=== PATIENT | female | born 1960 | race Caucasian/White ===

== ENCOUNTER 2024-12-29 18:10 | Inpatient (IN) | payer MEDICAID, OTHER ==
[~2024-12-29] VITALS: Ht 170.2 cm; Wt 81.4 kg
[2024-12-29 18:30] VITALS: PULSE 87; RESP 16; O2SAT 95
--- NOTE | 2024-12-29 18:35 | ECG ---
[facility] Test Date: 2024-12-29 Test Time: 18:33:56 Pat Name: TASHA MARK Department: [facility] ED Room: 0248 Gender: F Group Sales Manager: WILLIAM : 1960 Requested By: ISRAEL GIBBONS Order Number: [id number] Reading MD: Arben Cornelius Measurements Intervals Drury Rate: 83 P: 69 MN: 167 QRS: 68 QRSD: 72 T: -59 QT: 463 QTc: 545 Interpretive Statements Sinus rhythm Borderline T abnormalities, diffuse leads Prolonged QT interval Baseline wander in lead(s) II,III,aVL,aVF,V5 Electronically Signed On 01-03-2025 20:27:48 PDT by Arben Cornelius Please click the below link to view image of tracing.
[2024-12-29] MEDS: SODIUM CHLORIDE 0.9% 1,000 ML IV ONE (18:43)
--- NOTE | 2024-12-29 19:05 | DVH ---
CLINICAL HISTORY: altered TECHNIQUE: Single view of the chest was obtained. COMPARISON: None FINDINGS: The heart size is mildly to moderately enlarged and the pulmonary vasculature appears normal. There i s a left medial basilar opacity. IMPRESSION: Left medial basilar opacity, favor atelectasis.
[2024-12-29 19:30] LABS: Urine Protein, UAD 1+ (Negative)
--- NOTE | 2024-12-29 19:33 | ED.PDOC ---
Altered Mental Status HPI Comments This is a 64 year old female BIBA presenting to the ED with chief complaint of ALOC. EMS reports patient has been mentally declining for the past 6 years according to family. EMS relays that the patient's mental decline has worsened over the past week with patient being more altered than usual. EMS states that the patient knows she is in the hospital, but is denying any and all symptoms at this time. EMS notes patient appears pale and is tachycardic. Chief Complaint: ALOC Time Seen by MD: 19:31 Primary Care Provider: ALICIA Reviewed Notes: Nurses Notes, Field Counsel Notes, Medications, Allergies Allergies: Coded Allergies: Acetaminophen (Verified Allergy, Mild, 08/09/09) Hydrocodone (Verified Allergy, Mild, 08/09/09) Home Meds No Active Prescriptions or Reported Meds Information Source: Patient, Emergency Med Personnel Mode of Arrival: EMS Severity: Moderate, Unable to Care for Self Timing: Weeks Duration: Since onset Prehospital treatment: None Quality: Decreased Alertness, Change in Behavior, Confusion Recent: None History of: None Past Medical History PAST MEDICAL HISTORY: Kidney Stones Surgical History: Denies all surgeries LODGE ATTENDANT History: No Pertinent LODGE ATTENDANT History Family History Family History: Reviewed,noncontributory to illness Social History Smoker: Quit Less Than 1 Year, Greater Than 1 Pack/Day Alcohol: Denies ETOH Use Drugs: Denies Drug Use Lives In: Home Constitutional: denies: chills, diaphoresis, fatigue, fever, malaise, sweats, weakness, others EENTM: denies: blurred vision, double vision, ear bleeding, ear discharge, ear drainage, ear pain, ear ringing, eye pain, eye redness, hearing loss, mouth pain , mouth swelling, nasal discharge, nose bleeding, nose congestion, nose pain, photophobia, tearing, throat pain, throat swelling, voice changes, others Respiratory: denies: cough, hemoptysis, orthopnea, SOB at rest, shortness of breath, SOB with excertion, stridor, wheezing, others Cardiovascular: denies: chest pain, dizzy spells, diaphoresis, Dyspnea on exertion, edema, irregular heart beat, left arm pain, lightheadedness, palpitations, PND, syncope, others Gastrointestinal: denies: abdomen distended, abdominal pain, blood streaked bowels, constipated, diarrhea, dysphagia, difficulty swallowing, hematemesis, melena, nausea, poor appetite, poor fluid intake, rectal bleeding, rectal pain, vomiting, others Genitourinary: denies: abnormal vagina bleeding, burning, dyspareunia, dysuria, flank pain, frequency, hematuria, incontinence, pain, , vagina discharge, urgency, others Neurological: denies: dizziness, fainting, headache, left sided numbness, left sided weakness, numbness, paresthesia, pre-existing deficit, right sided numbness, right sided weakness, seizure, speech problems, tingling, tremors, weakness, others Musculoskeletal: denies: back pain, gout, joint pain, joint swelling, muscle pain, muscle stiffness, neck pain, others Integumetry: denies: bruises, change in color, change in hair/nails, dryness, laceration, lesions, lumps, rash, wounds, others Allergic/Immunocompromised: denies: Difficulty Healing, Frequent Infections, Hives, Itching, others Hematologic/Lymphatic: denies: anemia, blood clots, easy bleeding, easy bruising, swollen glands, others Psychiatric: denies: anxiety, bipolar disorder, depression, hopeless, panic disorder, schizophrenia, sleepless, suicidal, others Unable to Obtain due to: Altered Mental Status All Other Systems: Reviewed and Negative Physical Exam General Appearance: No Apparent Distress, Normal HEENT: Normal ENT Inspection, Pharynx Normal, TMs Normal, Other (dry mucous membranes) Neck: Full Range of Motion, Non-Tender, Normal, Normal Inspection Respiratory: Chest Non-Tender, Lungs Clear, No Accessory Muscle Use, No Respiratory Distress, Normal Breath Sounds Cardiovascular: No Edema, No JVD, No Murmur, No Gallop, Normal Peripheral Pulses, Tachycardia Breast Exam: Deferred Gastrointestinal: No Organomegaly, Non Tender, No Pulsatile Mass, Normal Bowel Sounds, Soft Genitalia: Deferred Pelvic: Deferred Rectal: Deferred Extremities: No calf tenderness, Normal capillary refill, Normal inspection, Normal range of motion, Non-tender, No pedal edema Musculoskeletal : Apperance: Normal Neurologic: Alert, loading manager II-XII nml as Tested, No Motor Deficits, Normal Affect, Normal Mood, No Sensory Deficits Cerebellar Function: Normal Reflexes: Normal Skin: Dry, Pallor, Warm Lymphatic: No Adenopathy Was a procedure done? Was a procedure done?: No Other Procedure Procedure I attempted to place a triple-lumen central venous catheter in the right internal jugular vein . The vein was very collapsible. Each time the needle we will completely collapsed the vein without penetration. However on the last attempt I was able to penetrate the vein and was able to aspirate dark venous blood flow easily however when attempting to place the guidewire only advanced by about 5 in in was stopped advancing. This attempt was aborted with the guidewire retrieved. I then attempted to place of femoral central venous catheter on the right femoral vein. I was able to easily cannulate the vein on the 1st attempt with return of dark venous blood however again, the guidewire only advanced to about 5 inches. Again I back the guidewire back gout and abort ed the attempt. Each attempt was done under although sterile protocol with no complications. No hematoma, no active bleeding. Differential Diagnosis (ALOC) Differential Diagnosis: Dehydration, Hypoglycemia, Encephalopathy, Hypoxemia, Seizure, CVA, Mass Lesion, SAH, Drug Overdose, ETOH Intoxication, Heart Failure, Renal Failure, Other (hypothyroidism) X-Ray, Labs, Meds, VS Vital Signs Date Time Temp Pulse Resp B/P (MAP) Pulse Ox O2 Delivery O2 Flow Rate FiO2 12/29/24 20:25 100.4 82 22 157/56 (89) 95 100.4 12/29/24 18:33 83 12/29/24 18:30 87 16 95 Room Air* 0 21 12/29/24 18:30 97.7 87 20 161/125 (137) 95 97.7 12/29/24 18:11 97.3 72 18 111/66 94 97.3 Lab Test 12/29/24 19:58 12/29/24 18:51 12/29/24 18:48 Range/Units Troponin I High Sensitivity 12 14 </=34 ng/L Urine Color Light-orange Yellow Urine Clarity Turbid H Clear Urine pH 7.5 5.0-9.0 Urine Specific [place]hoff 1.015 1.001-1.035 Urine Protein 1+ H Negative Urine Ketones Negative Negative Urine Blood 2+ H Negative /uL Urine Nitrite Negative Negative Urine Bilirubin Negative Negative Urine Urobilinogen Normal Negative mg/dL Urine Leukocyte Esterase 1+ Negative /uL Urine RBC 51 0 - 4 /hpf Urine Microscopic WBC 36 H 0-5 /HPF Urine Squamous Epithelial Cells Few <5 /hpf Urine Bacteria Few H None Seen /hpf Urine Mucus Few None Seen Urine Glucose Normal Normal mg/dL Urine Opiates Screen Neg NEGATIVE Urine Fentanyl Screen Neg NEGATIVE Urine Barbiturates Screen Neg NEGATIVE Urine Phencyclidine Screen Neg NEGATIVE Urine Amphetamines Screen Neg NEGATIVE Urine Benzodiazepines Screen Neg NEGATIVE Urine Cocaine Screen Neg NEGATIVE Urine Cannabinoids Screen Neg NEGATIVE White Blood Count 11.7 H 4.4-10.8 10^3/uL Red Blood Count 3.65 L 4.0-5.20 10^6/uL Hemoglobin 12.5 12.2-16.2 g/dL Hematocrit 36.8 36.0-46.0 % Mean Corpuscular Volume 100.9 H 80.0-100.0 fL Mean Corpuscular Hemoglobin 34.4 H 28.0-32.0 pg Mean Corpuscular Hemoglobin Concent 34.1 32.0-36.0 g/dL Red Cell Distribution Width 15.1 H 11.8-14.3 % Platelet Count 154 140-450 10^3/uL Mean Platelet Volume 10.2 6.9-10.8 fL Neutrophils (%) (Auto) 37.0-80.0 % Lymphocytes (%) (Auto) 10.0-50.0 % Monocytes (%) (Auto) 0.0-12.0 % Basophils (%) (Auto) 0.0-2.0 % Neutrophils # (Auto) 1.6-8.6 10 ^3/uL Lymphocytes # (Auto) 0.4-5.4 10 ^3/uL Monocytes # (Auto) 0-1.3 10 ^3/uL Differential Total Cells Counted 100.0 100 Neutrophils % (Manual) 86 H 37.0-80.0 Band Neutrophils % (Manual) 4 Lymphocytes % (Manual) 5 L 10.0-50.0 Monocytes % (Manual) 5 0-12 Eosinophils % (Manual) 0 0-7 Basophils % (Manual) 0 0.0-2.0 Metamyelocytes % (manual) 0 Myelocytes % (Manual) 0 Promyelocytes % (Manual) 0 Blast Cells % (Manual) 0 Reactive Lymphocytes 0 Platelet Estimate Adequate Anisocytosis (manual) Slight Sodium Level 140 136-145 mmol/L Potassium Level 3.6 3.5-5.1 mmol/L Chloride Level 105 98-107 mmol/L Carbon Dioxide Level 24 20-31 mmol/L Anion Gap 11 5-15 Blood Urea Nitrogen 13 9-23 mg/dL Creatinine 1.37 H 0.550-1.02 mg/dL Glomerular Filtration Rate Calc 43 >90 mL/min BUN/Creatinine Ratio 9.5 L 10.0-20.0 Serum Glucose 109 H 74-106 mg/dL Lactic Acid Level 2.5 *H 0.4-2.0 mmol/L Calcium Level 9.3 8.7-10.4 mg/dL Total Bilirubin 1.1 H 0.2-1.0 mg/dL Aspartate Amino Transferase (AST) 38 13-40 U/L Alanine Aminotransferase (ALT) 19 7-40 U/L Alkaline Phosphatase 63 46-116 U/L Total Protein 7.2 5.7-8.2 g/dL Albumin 4.5 3.2-4.8 g/dL Thyroid Stimulating Hormone (TSH) 61.40 H 0.55-4.78 uIU/mL Free Thyroxine (T4) Calculated 0.13 L 0.89-1.76 ng/dL Total Triiodothyronine (TT3) < 0.10 L 0.60-1.81 ng/mL Cortisol PM Sample 25.09 H 3.44-16.76 ug/dL Current Medications Medications (Trade) Dose Ordered Sig/Jermain Route Start Time Stop Time Status Last Admin Sodium Chloride 1,000 ml @ 100 mls/hr Q10H ONCE IV 12/29/24 18:30 12/30/24 04:29 12/29/24 18:43 [place] [address] Ph: [phone] DIAGNOSTIC IMAGING Diagnostic Imaging Report : [id number] Signed PATIENT: TASHA MARK ACCT: [id number] UNIT: [id number] : 1960 LOC: ER ROOM / BED: / AGE / SEX: 64 / F ADM STATUS: REG ER SERVICE 3080 ORDERING PHYSICIAN: ISRAEL GIBBONS MD PROCEDURE(s): CXR1 - CHEST XRAY 1 VIEW REASON: altered ORDER NUMBER(s): [id number], ACCESSION NUMBER(s): [id number] CLINICAL HISTORY: altered TECHNIQUE: Single view of the chest was obtained. COMPARISON: None FINDINGS: The heart size is mildly to moderately enlarged and the pulmonary vasculature appears normal. There is a left medial basilar opacity. IMPRESSION: Left medial basilar opacity, favor atelectasis. ATED BY: SAÚL MAYER MD DICTATED DATE/TIME: 12/29/241901 SIGNED BY: SAÚL MAYER MD SIGNED DATE/TIME: 12/29/241901 CC: Time of 1ST Reevaluation: 20:30 Reevaluation 1ST: Unchanged Time of 2ND Reevaluation: 20:21 Reevaluation 2ND: Unchanged Patient Education/Counseling: Diagnosis, Treatment, Prognosis, Need For Follow Up Family Education/Counseling: No Family Present Comments Hospitalist this is a patient who has been progressively getting weaker over the past 60 years according to family over the past couple of weeks she has accelerated her deterioration. Patient appears to have though he skin alopecia and thinning eyebrow, as well as decreasing deep tendon reflexes. She is also mildly hypothermic. Her TSH is extremely elevated. Patient has myxedema coma which is a misnomer since most patient has are not in coma. Patient will be admitted to telemetry for further treatments. She has already been given IV fluids. I will start her on hydrocortisone and levothyroxine However while patient is here her temperature climbed. Infectious etiology could have trigger the sudden deterioration. We will start her on sepsis protocol i just spoke to her mother and updated her Additional Information Reviewed patient's previous visit(s): 05/20/12 for cough The following tests were ordered, and results were reviewed by me: CBC, CMP, UA, UDS, Troponin, TSH, Blood Culture, EKG Additional information was gathered from interviewing the following independent historian: EMS I reviewed and agreed with the following test results read by other provider: Chest XR I discussed treatments and results with medical personnel and: PATIENT Comprehensive systems review obtained and negative except for what is stated in the HPI. SEPSIS Sepsis Screen Date sepsis recognized/suspect: Dec 29, 2024 Time Sepsis recognized/suspect: 20:27 Recent Procedure: No On Antibiotic Therapy: No Respiratory Rate >20: No Heart Rate >90: No Temp<36 C (96.8 F) or >38.3 C: No SBP <90 or MAP <65 mmHG: No New Acute Mental Status Change: No Is the patient on CPAP, BIPAP,: No Physician Orders Continuous Ekg Monitoring ,12,16,20,00,04 (12/29/24 18:25) Chest Xray 1 View (12/29/24 18:25) Insert Richey Catheter QSHIFT (12/29/24 18:25) Troponin-I Hs (12/29/24 21:25) Sodium Chloride 0.9% (12/29/24 18:30) Blood Culture (12/29/24 18:48) Urinalysis (12/29/24 20:26) Accucheck (12/29/24 20:26) Lactated Ringer's (12/29/24 20:30) Lactic Acid W/ Reflex Order (12/30/24 00:00) Cefepime 1gm/50ml (Maxipime 1gm/50ml) (12/29/24 22:00) Notify Md If Map <65 Or Bp<90 (12/29/24 20:26) If Map<65 Start Vasopressor (12/29/24 20:26) Sepsis Reassesment After Fluid (12/29/24 21:26) Vital Signs Date Time Temp Pulse Resp B/P (MAP) Pulse Ox O2 Delivery O2 Flow Rate FiO2 12/29/24 20:25 100.4 82 22 157/56 (89) 95 100.4 12/29/24 18:33 83 12/29/24 18:30 87 16 95 Room Air* 0 21 12/29/24 18:30 97.7 87 20 161/125 (137) 95 97.7 12/29/24 18:11 97.3 72 18 111/66 94 97.3 Laboratory Tests Test 12/29/24 18:48 Lactic Acid Level 2.5 mmol/L (0.4-2.0) *H White Blood Count 11.7 10^3/uL (4.4-10.8) H Medications Medications Dose Ordered Sig/Jermain Route Start Time Stop Time Status Last Admin Dose Admin Sodium Chloride 1,000 ml @ 100 mls/hr Q10H ONCE IV 12/29/24 18:30 12/30/24 04:29 12/29/24 18:43 Reassessment Post Fluid Pulse Location: Radial Pulse Strength: Normal Capillary Refill Exam: < 3 seconds Skin Temperature: Warm Skin Moisture: Dry Skin Color: WNL Fingernail Color: WNL Departure 1 Departure Time of Disposition: 20:20 Impression: Primary Impression: Myxedema coma Additional Impression: Renal insufficiency Disposition: ADMITTED INPATIENT Admit to: [facility] Condition: Serious e-Prescriptions No Active Prescriptions or Reported Meds Discharged With: Self, Relative (Mother) Critical Care Note Critical Care Time?: Yes (1 hr-critical care time only) Critical care comment: due to concerns for patient's condition deteriorating, the care required my highest level of attention and readiness to intervene. i assessed the patient's condition, ordered the proper tests and treatments, reassessed for response and reviewed the results. i communicated with medical personnel and formulated a plan of care. total critical care time does not include any procedures Stability Stability form required: No Heart Score Heart Score: Heart Score Response (Comments) Value History N/A 0 EKG N/A 0 Age N/A 0 Risk Factors N/A 0 Troponin N/A 0 Total 0 I personally scribed for ISRAEL GIBBONS MD ([email or web address]) on 12/29/24 at 19:33. Electronically submitted by Kody Amato ([email or web address]). I personally scribed for ISRAEL GIBBONS MD ([email or web address]) on 12/29/24 at 19:43. Electronically submitted by Kody Amato ([email or web address]). ISRAEL GIBBONS MD Dec 29, 2024 19:33
[2024-12-29 19:47] LABS: Hematocrit 36.8 % (36.0-46.0); Hemoglobin 12.5 g/dL (12.2-16.2); Mean Corpuscular Hemoglobin 34.4 pg (28.0-32.0); Mean Corpuscular Volume 100.9 fL (80.0-100.0)
[2024-12-29 19:49] LABS: Alanine Aminotransferase 19 U/L (7-40); Albumin 4.5 g/dL (3.2-4.8); Alkaline Phosphatase 63 U/L (46-116); Anion Gap 11 (5-15); BUN/Creatinine Ratio 9.5 (10.0-20.0); Bilirubin, Total 1.1 mg/dL (0.2-1.0); Blood Urea Nitrogen 13 mg/dL (9-23); Calcium 9.3 mg/dL (8.7-10.4); Carbon Dioxide 24 mmol/L (20-31); Chloride 105 mmol/L (98-107); Potassium 3.6 mmol/L (3.5-5.1); Sodium 140 mmol/L (136-145); Total Protein 7.2 g/dL (5.7-8.2)
[2024-12-29 19:50] LABS: Amphetamine Screen, Urine Neg (NEGATIVE); Barbiturate Scree,Urine Neg (NEGATIVE); Benzodiazephine Screen, Urine Neg (NEGATIVE); Cocaine Screen, Urine Neg (NEGATIVE); Opiate Scree,Urine Neg (NEGATIVE)
[2024-12-29 19:50] LABS: Glucose 109 mg/dL (74-106)
[2024-12-29 19:51] LABS: Cannabinoid Screen, Urine Neg (NEGATIVE); Phencyclidine Screen, Urine Neg (NEGATIVE)
[2024-12-29 20:08] LABS: Anisocytosis Slight; Total Cells Counted 100.0 (100)
[2024-12-29] MEDS: LACTATED RINGER'S 1,850 ML IV ONE (20:30)
[2024-12-29 21:12] LABS: Free T4 (Free Thyroxine) 0.13 ng/dL (0.89-1.76)
[2024-12-29 21:17] LABS: Lactic Acid w/Reflex 2.5 mmol/L (0.4-2.0)
[2024-12-29] MEDS: LORazepam 2MG/ML-1ML VIAL ONE (21:26)
[2024-12-29] MEDS: LORazepam 2MG/ML-1ML VIAL IM ONE (21:30)
[2024-12-29] MEDS: CEFEPIME 1GM/50ML 50 ML IV SCH (22:51)
[2024-12-29] MEDS: HYDROCORTISONE SOD SUCC 100 MG/2ML INJ VIAL IV ONE (22:51)
[2024-12-29] MEDS: LEVOTHYROXINE SODIUM 100 MCG/5 ML INJ IV ONE ×2 (23:15→23:16)
[2024-12-29] MEDS: HYDROCORTISONE SOD SUCC 100 MG/2ML INJ VIAL IV SCH (23:15)
[2024-12-29 23:16] LABS: Urine Protein, UAD 1+ (Negative)
[2024-12-30] VITALS (7 sets, daily range): BP systolic 125–146; BP diastolic 74–99; PULSE 59–76; RESP 11–18; TEMP 97.8; O2SAT 93–97
[2024-12-30] MEDS ORDERED: ONDANSETRON HCL 4 MG/2 ML VIAL IV PRN (01:00)
[2024-12-30] MEDS ORDERED: MORPHINE SULFATE INJ 2 MG/ml SYRG IV PRN (01:00)
--- NOTE | 2024-12-30 01:08 | DVHHPRES ---
History of Present Illness Resident Creating Document: DOMONIQUE CAMERON RESIDENT History of Present Illness Patria Fox is a 64-year-old female patient who presents to the ED via EMS with chief complaint of altered level of consciousness. Due to clinical status obtain information from EMR. EMS reports the patient has been mentally declining in the past six years according to family, however got worse in the past week. Patient is arousable, oriented in two spheres (person and place), Alexander score 11. Try to call to next of kin (father), but he did not merchandise pickup/receiving associate phone. Could not obtain review of systems Past medical history: Kidney stones Surgical history: Denies Family history: Unknown Social history: Lives with family in [place]. Ex tobacco abuse (approximately 50 pack-year history of smoking), denies ethanol and other drug abuse Allergies: Acetaminophen and hydrocodone Home medication: Past Medical History Per HPI Past Surgical History Per HPI Family History Per HPI Past Social History Per HPI Review of Systems Review of Systems Per HPI Allergies: Coded Allergies: Acetaminophen (Verified Allergy, Mild, 08/09/09) Hydrocodone (Verified Allergy, Mild, 08/09/09) Medications Current Medications Medications Dose Ordered Sig/Jermain Route Start Time Stop Time Status Last Admin Dose Admin Cefepime HCl 50 ml @ 12.5 mls/hr Q8HR IV 12/29/24 22:00 12/29/24 22:51 12.5 MLS/HR Hydrocortisone Sodium Succinate 100 mg Q8HR IV 12/29/24 23:15 Levothyroxine Sodium 50 mcg DAILY IV 12/30/24 10:00 Exam Vital Signs Vital Signs Date Time Temp Pulse Resp B/P (MAP) Pulse Ox O2 Delivery O2 Flow Rate FiO2 12/30/24 00:31 99.8 68 20 84/48 (60) 95 99.8 12/30/24 00:31 Room Air* 0 21 Exam Patient lying in bed, in no acute distress General: Somnolent, arousable, [place] score 11/15, afebrile, mucosae are dry, alopecia in eyebrows and left temporal side of head. Eyelids are edematous. Macroglossia Cardiovascular: Normal S1 and S2. No murmurs, gallops or rubs Respiratory: Normal ventilation mechanics. Clear lung sounds on auscultation Abdomen: Soft, nontender, no organomegaly, normal bowel sounds MSK/skin: Mobilizes 4 limbs. Skin is dry and scaly, mixed edematous skin. Neurological: Oriented in 3 spheres. Hyporeflexia. No motor no sensitive deficits. Pupils are isocoric and reactive Labs/Xrays Labs Test 12/30/24 00:33 12/29/24 21:59 12/29/24 21:00 12/29/24 18:51 Range/Units Troponin I High Sensitivity 14 </=34 ng/L Urine Color Light-orange Yellow Urine Clarity Turbid H Clear Urine pH 7.5 5.0-9.0 Urine Specific [place] 1.015 1.001-1.035 Urine Protein 1+ H Negative Urine Ketones Negative Negative Urine Blood 2+ H Negative /uL Urine Nitrite Negative Negative Urine Bilirubin Negative Negative Urine Urobilinogen Normal Negative mg/dL Urine Leukocyte Esterase 2+ Negative /uL Urine RBC 47 0 - 4 /hpf Urine Microscopic WBC 35 H 0-5 /HPF Urine Squamous Epithelial Cells Few <5 /hpf Urine Bacteria Few H None Seen /hpf Urine Hyaline Casts Few 0 - 2 /lpf Urine Mucus Few None Seen Urine Glucose Normal Normal mg/dL Urine Opiates Screen Neg NEGATIVE Urine Fentanyl Screen Neg NEGATIVE Urine Barbiturates Screen Neg NEGATIVE Urine Phencyclidine Screen Neg NEGATIVE Urine Amphetamines Screen Neg NEGATIVE Urine Benzodiazepines Screen Neg NEGATIVE Urine Cocaine Screen Neg NEGATIVE Urine Cannabinoids Screen Neg NEGATIVE Test 12/29/24 18:48 Range/Units Differential Total Cells Counted 100.0 100 Neutrophils % (Manual) 86 H 37.0-80.0 Band Neutrophils % (Manual) 4 Lymphocytes % (Manual) 5 L 10.0-50.0 Monocytes % (Manual) 5 0-12 Eosinophils % (Manual) 0 0-7 Basophils % (Manual) 0 0.0-2.0 Metamyelocytes % (manual) 0 Myelocytes % (Manual) 0 Promyelocytes % (Manual) 0 Blast Cells % (Manual) 0 Reactive Lymphocytes 0 Platelet Estimate Adequate Anisocytosis (manual) Slight Total Bilirubin 1.1 H 0.2-1.0 mg/dL Aspartate Amino Transferase (AST) 38 13-40 U/L Alanine Aminotransferase (ALT) 19 7-40 U/L Alkaline Phosphatase 63 46-116 U/L Total Protein 7.2 5.7-8.2 g/dL Albumin 4.5 3.2-4.8 g/dL Thyroid Stimulating Hormone (TSH) 61.40 H 0.55-4.78 uIU/mL Free Thyroxine (T4) Calculated 0.13 L 0.89-1.76 ng/dL Total Triiodothyronine (TT3) < 0.10 L 0.60-1.81 ng/mL Cortisol PM Sample 25.09 H 3.44-16.76 ug/dL SEPSIS Sepsis Screen Date sepsis recognized/suspect: Dec 29, 2024 Time Sepsis recognized/suspect: 20:27 Recent Procedure: No On Antibiotic Therapy: No Respiratory Rate >20: No Heart Rate >90: No Temp<36 C (96.8 F) or >38.3 C: No SBP <90 or MAP <65 mmHG: No New Acute Mental Status Change: No Is the patient on CPAP, BIPAP,: No Physician Orders Continuous Ekg Monitoring 08,12,16,20,00,04 (12/29/24 18:25) Chest Xray 1 View (12/29/24 18:25) Insert Richey Catheter QSHIFT (12/29/24 18:25) Sodium Chloride 0.9% (12/29/24 18:30) Blood Culture (12/29/24 18:48) Accucheck (12/29/24 20:26) Lactic Acid W/ Reflex Order (12/30/24 00:00) Cefepime 1gm/50ml (Maxipime 1gm/50ml) (12/29/24 22:00) Notify Md If Map <65 Or Bp<90 (12/29/24 20:26) If Map<65 Start Vasopressor (12/29/24 20:26) Sepsis Reassesment After Fluid (12/29/24 21:26) Hydrocortisone Succinate Inj (Solu-Miya (12/29/24 23:15) Levothyroxine Injection (Synthroid Injec (12/30/24 10:00) Hemoglobin A1c (12/30/24 00:33) Urine Bacterial Culture (12/30/24 00:33) Vitamin B12 (12/30/24 00:33) Vitamin D, 25-Hydroxy (12/30/24 00:33) Complete Blood Count (12/30/24 04:00) Basic Metabolic Panel (12/30/24 04:00) Magnesium (12/30/24 04:00) Phosphorus (12/30/24 04:00) Admit (12/30/24 00:59) Code Status (12/30/24:59) Acetaminophen Tablet (Tylenol Tablet) (12/30/24 01:00) Ondansetron Hcl (Zofran) (12/30/24 01:00) Npo (Nothing By Mouth) Diet (12/30/24 Breakfast) * Swallow Request (12/30/24:59) Echo 2d Mode Cardiac Dop (12/30/24:59) Morphine Sulfate Injection (12/30/24 01:00) Enoxaparin Sodium (Lovenox) (12/30/24 10:00) Oxygen By Nasal Cannula (12/30/24:59) Stat Ekg For Chest Pain (12/30/24:59) Notify Md Of Changes From Base (12/30/24:59) Steam Crane Operator For 24 Hours (12/30/24:59) Emergency Dysrhythmia Protocol (12/30/2459) Rhythm Strips Once Every Shift (12/30/24:59) Respiratory Culture W/ Gs (12/30/24:59) Sputum Induction (12/30/24:59) Vital Signs Date Time Temp Pulse Resp B/P (MAP) Pulse Ox O2 Delivery O2 Flow Rate FiO2 12/30/24 00:31 99.8 68 20 84/48 (60) 95 99.8 12/30/24 00:31 68 16 95 Room Air* 0 21 12/30/24 00:00 69 12/29/24 22:00 76 15 115/53 (73) 95 12/29/24 20:25 100.4 82 22 157/56 (89) 95 100.4 12/29/24 18:33 83 12/29/24 18:30 87 16 95 Room Air* 0 21 12/29/24 18:30 97.7 87 20 161/125 (137) 95 97.7 12/29/24 18:11 97.3 72 18 111/66 94 97.3 Laboratory Tests Test 12/29/24 18:48 12/29/24 21:59 12/30/24 00:33 Lactic Acid Level 2.5 mmol/L (0.4-2.0) *H 1.4 mmol/L (0.4-2.0) Pending White Blood Count 11.7 10^3/uL (4.4-10.8) H Pending Medications Medications Dose Ordered Sig/Jermain Route Start Time Stop Time Status Last Admin Dose Admin Cefepime HCl 50 ml @ 12.5 mls/hr Q8HR IV 12/29/24 22:00 12/29/24 22:51 12.5 MLS/HR Ceftriaxone Sodium 50 ml @ 100 mls/hr ONCE ONCE IV 12/29/24 19:45 12/29/24 20:19 DC 12/29/24 22:51 100 MLS/HR Hydrocortisone Sodium Succinate 100 mg ONCE ONCE IV 12/29/24 20:30 12/29/24 20:31 DC 12/29/24 22:51 100 MG Lactated Ringer's 1,850 ml @ 1,000 mls/hr ONCE ONCE IV 12/29/24 20:30 12/29/24 22:20 DC 12/29/24 20:30 1,000 MLS/HR Levothyroxine Sodium 50 mcg ONCE ONCE IV 12/29/24 20:30 12/29/24 20:31 DC 12/29/24 23:16 50 MCG Sodium Chloride 1,000 ml @ 100 mls/hr Q10H ONCE IV 12/29/24 18:30 12/30/24 04:29 12/29/24 18:43 100 MLS/HR Reassessment Post Fluid Pulse Location: Radial Pulse Strength: Normal Capillary Refill Exam: < 3 seconds Skin Temperature: Warm Skin Moisture: Dry Skin Color: WNL Fingernail Color: WNL Assessment/Plan Assessment/Plan Septic shock probably secondary to UTI versus aspiration pneumonia Aspiration pneumonia Gram-positive/Gram-negative Complicated UTI Hyperlacticacidemia-improved Obtain urine analysis which showed positive esterase and white blood cells Chest x-ray did not show clear evidence of consolidation Patient currently on nasal cannula with 2 L/min. Consider aspiration pneumonia due to myxedema coma. Place patient NPO Currently under empiric IV antibiotic (Zosyn) Obtained pancultures (blood, urine, sputum) Partially responded to IV fluids. Norepinephrine on standby at this point. Patient currently in ICU status Myxedema coma Newly diagnosed hypothyroidism Patient presents clinical features of hypothyroidism (alopecia, palpebral myxede ma, hyporeflexia, macroglossia, dry skin pretibial myxedema). Features of myxedema, is decreased mental status, hypothermia and posteriorly presented hypotension (no bradycardia, hyponatremia, hypoglycemia) [place] score is 11/15, patient is arousable. Patient admitted to ICU for monitoring. Indicated IV levothyroxine (load of W200 mcg and 50 mcg IV daily) Cortisol was elevated. Indicated hydrocortisone 100 mg IV t.i.d. TSH 61 and reduced T4 and T3. e will order T4 and T3 q.48h. HANS hemodynamically mediated (VMN) Indicated IV fluids We will monitor Macrocytosis with no anemia Probably secondary to hypothyroidism Goals of care could not be discussed appropriately with patient due to altered mental status: We will be consider as full code. Could not contact next of kin (father) Discussed plan with Dr. Pierson, patient and nurses: Patient admitted to ICU status due to myxedema coma and septic shock probably secondary to UTI versus aspiration pneumonia. Currently under empiric IV antibiotic, on IV fluids, IV vasopressors on standby and IV levothyroxine. Patient has poor prognosis. Plan discussed with: Patient, Other (Father (did not piuck up phone call) and nurses) My Orders Orders - DOMONIQUE CAMERON RESIDENT Procedure Category Date Status Time Admit ADMIT 12/30/24 Transmitted 00:59 Code Status CODE 12/30/24 Transmitted 00:59 Acetaminophen Tablet PHA 12/30/24 Logged (Tylenol Tablet) 01:00 Ondansetron Hcl PHA 12/30/24 Logged (Zofran) 01:00 Npo (Nothing By DIET 12/30/24 Transmitted Mouth) Diet Breakfast * Swallow Request ST 12/30/24 Transmitted 00:59 Echo 2d Mode Cardiac US 12/30/24 Logged DOP 00:59 Morphine Sulfate PHA 12/30/24 Logged Injection 01:00 Enoxaparin Sodium PHA 12/30/24 Logged (Lovenox) 10:00 Oxygen By Nasal RT 12/30/24 Transmitted Cannula 00:59 Stat Ekg For Chest ARMAND 12/30/24 In Process Pain 00:59 Notify Of Changes ARMAND 12/30/24 In Process From Base 00:59 Steam Crane Operator For ARMAND 12/30/24 In Process 24 Hours 00:59 Emergency Dysrhythmia ARMAND 12/30/24 In Process Protocol 00:59 Rhythm Strips Once ARMAND 12/30/24 In Process Every Shift 00:59 Respiratory Culture NATALIA 12/30/24 Logged W/ Gs 00:59 Sputum Induction RT 12/30/24 Logged 00:59 Date of Service: Dec 30, 2024 Billing Provider: VIDYA PIERSON MD Common Visit Codes: [id number] INP/OBS CARE (HIGH) Secondary Visit Codes: [id number] CARE PLAN 30 MINUTES DOMONIQUE CAMERON RESIDENT Dec 30, 2024 01:08
[2024-12-30 01:09] LABS: Hematocrit 31.3 % (36.0-46.0); Hemoglobin 10.3 g/dL (12.2-16.2); Mean Corpuscular Hemoglobin 34.2 pg (28.0-32.0); Mean Corpuscular Volume 103.5 fL (80.0-100.0); Nucleated Red Blood Cells % 0.2 %
[2024-12-30] MEDS: SODIUM CHLORIDE 0.9% 1,000 ML IV ONE (01:15)
[2024-12-30] MEDS: SODIUM CHLORIDE 0.9% 1,000 ML IV SCH (01:15)
[2024-12-30 02:59] LABS: Anion Gap 11 (5-15)
[2024-12-30 03:04] LABS: BUN/Creatinine Ratio 15.0 (10.0-20.0); Blood Urea Nitrogen 19 mg/dL (9-23)
[2024-12-30 03:05] LABS: Magnesium 2.0 mg/dL (1.6-2.6)
[2024-12-30 03:11] LABS: Carbon Dioxide 25 mmol/L (20-31); Chloride 108 mmol/L (98-107); Potassium 3.1 mmol/L (3.5-5.1); Sodium 144 mmol/L (136-145)
[2024-12-30 03:12] LABS: Calcium 8.3 mg/dL (8.7-10.4); Glucose 109 mg/dL (74-106)
[2024-12-30] MEDS: NOREPINEPHRINE 8 MG/250ML KIT 250 ML IV SCH (03:45)
--- NOTE | 2024-12-30 06:53 | ED.PDOC ---
Was a procedure done? Was a procedure done?: Yes Sedation Sedation?: No Central Line Recorder of insertion practice: Manufacturing Technologist Occupation of clerical administrative assistant: Attending Physician Indication: Hypotension, Inability to obtain IV Room prepared for procedure: Yes Manufacturing Technologist performed hand hygien: Yes Maximal sterile barrier precau: Mask/Eye shield, Sterile gown, Sterlie gloves, Large sterlie drape Skin Preparation: Chlorhexidine gluconate Skin preparation completely dr: Yes Insertion site: Right, Femoral Central line catheter type: [id number] dialysis Number of lumens: 3 Central line exchanged over a: Yes Antiseptic ointment applied to: Yes Post Assessment: Proper placement Informed consent obtained: No Risks/benefits/alt described: No Notes I was called to the room for a patient needing emergent iv access for hypotension. JOSE BRUNNER MD Dec 30, 2024 06:53
[2024-12-30] MEDS: POTASSIUM CHL 20MEQ/100ML 100 ML IV SCH (08:55)
[2024-12-30] MEDS: LEVOTHYROXINE SODIUM 100 MCG/5 ML INJ IV SCH (08:55)
[2024-12-30] MEDS: ENOXAPARIN SOD 40 MG/0.4 ML SYRINGE SC SCH (08:56)
[2024-12-30] MEDS: CYANOCOBALAMIN 500 MCG TAB PO ONE (10:30)
[2024-12-30] MEDS: ERGOCALCIFEROL 50,000 UNIT(1.25MG) CAP PO SCH (10:30)
--- NOTE | 2024-12-30 12:04 | DVHPNRES ---
Progress Note Date Seen: Dec 30, 2024 Resident Creating Document: CONNER SANDRA RESIDENT Medical Necessity Reason Pt with a Central, PICC or Fol: Yes The following are medically ne: Central Line, Richey Catheter Subjective Review of Systems This is a 64-year-old female with known past medical history BIBEMS with chief complaint of altered level of consciousness. As per brother, patient mental status is getting worsen day by day approximately last 5 years but suddenly worsen past week. Patient lives with her mom who is 86-year-old, not follow-up with any physician last 10 years. Never seen by any cardiology, endocrine are neurologist. Patient use cane at home for ambulation and recurrent history of fall but denies any head trauma. During admission, [place] score 11. Patient seen and evaluated in bedside in ER. s/p Levophed due to hypotension. Patient able to answer questions but delay and incomplete, appears confused, sensory and motor movement intact. Currently Alexander coma scale 15. Past medical history: Kidney stone Past surgical history: Tumor removal 2013 unknown side Social history; smoking daily pack per day-40 years, remote history of substance abuse Family [id number] Allergic: Acetaminophen, hydrocodone PCP: Not selected Home medication: None 12/30: Patient seen and evaluated in bedside. Patient answered question but slow. Continue Levophed for hypertension. Monitor labs and vital. Objective vital signs Vital Sign Date Time Temp Pulse Resp B/P (MAP) Pulse Ox O2 Delivery O2 Flow Rate FiO2 12/30/24 09:34 63 14 97 Nasal Cannula* 4 36 12/30/24 09:29 129/71 (90) 12/30/24 00:31 99.8 99.8 Total Intake and Output 12/29/24 12/29/24 12/30/24 15:00 23:00 07:00 Intake Total 400 ml 2800.0 ml Output Total 700 ml Balance 400 ml 2100.0 ml medications Current Medications Medications Dose Ordered Sig/Jermain Route Start Time Stop Time Status Last Admin Dose Admin Cefepime HCl 50 ml @ 12.5 mls/hr Q8HR IV 12/29/24 22:00 12/30/24 06:53 12.5 MLS/HR Hydrocortisone Sodium Succinate 100 mg Q8HR IV 12/29/24 23:15 12/30/24 06:53 100 MG Levothyroxine Sodium 50 mcg DAILY IV 12/30/24 10:00 12/30/24 08:55 50 MCG Acetaminophen 325 mg Q4HP PRN PO 12/30/24 01:00 Ondansetron HCl 4 mg Q4HP PRN IV 12/30/24 01:00 Morphine Sulfate 2 mg Q4HPRN PRN IV 12/30/24 01:00 Enoxaparin Sodium 40 mg DAILY SC 12/30/24 10:00 12/30/24 08:56 40 MG Sodium Chloride 1,000 ml @ 75 mls/hr [id number] IV 12/30/24 01:15 12/30/24 01:15 75 MLS/HR Norepinephrine Bitartrate 250 ml @ 3.75 mls/hr Q24H IV 12/30/24 03:45 Potassium Chloride 100 ml @ 50 mls/hr Q2H IV 12/30/24 08:15 12/30/24 12:14 12/30/24 08:55 50 MLS/HR Ergocalciferol 50,000 unit Q7D PO 12/30/24 10:30 Cyanocobalamin 1,000 mcg DAILY PO 12/31/24 10:00 Examination Patient lying in bed, in no acute distress General: Somnolent, arousable, afebrile, mucosae are dry, alopecia in eyebrows and left temporal side of head. Eyelids are edematous. Macroglossia Cardiovascular: Normal S1 and S2. No murmurs, gallops or rubs Respiratory: Normal ventilation mechanics. Clear lung sounds on auscultation Abdomen: Soft, nontender, no organomegaly, normal bowel sounds MSK/skin: Mobilizes 4 limbs. Skin is dry and scaly, mixed edematous skin. Neurological: Oriented in 3 spheres. Hyporeflexia. No motor no sensitive deficits. Pupils are isocoric and reactive laboratory and microbiology Laboratory Tests 12/30/24 00:33 Test 12/30/24 00:33 Range/Units Serum Glucose 109 H 74-106 mg/dL Problem List/Assessment/Plan Problem List/Assessment/Plan This is a 64-year-old female with known past medical history BIBEMS with chief complaint of altered level of consciousness. As per brother, patient mental status is getting worsen day by day approximately last 5 years but suddenly worsen past week. Patient lives with her mom who is 86-year-old, not follow-up with any physician last 10 years. Never seen by any cardiology, endocrine are neurologist. Patient use cane at home for ambulation and recurrent history of fall but denies any head trauma. During admission, [place] score 11. Patient seen and evaluated in bedside in ER. s/p Levophed due to hypotension. P atient presents clinical features of hypothyroidism (alopecia, palpebral myxedema, hyporeflexia, macroglossia, dry skin, cold intolerance, pretibial myxedema). Features of myxedema, is decreased mental status, hypothermia.P atient able to answer questions but delay and incomplete, appears confused, sensory and motor movement intact. Currently Alexander coma scale 15. NEUROLOGY Myxedema coma Metabolic encephalopathy secondary to sepsis due to pneumonia/UTI RASS-0 * PLAN: Neuro check, monitor patient closely. CARDIOVASCULAR: Hypotensive shock secondary to sepsis need pressor Rule out cardiomyopathy * Echocardiogram pending * Plan; monitor blood pressure and vital, Levophed PULMONARY: Consider aspiration pneumonia due to myxedema coma/AMS Acute hypoxic respiratory failure due to pneumonia Gram-positive/Gram-negative * Patient currently on nasal cannula with 2 L/min on admission * CXR-showed left medial basilar atelectasis/pneumonia * Plan: IV antibiotic, desaturate oxygen GASTROINTESTINAL: * Plan: Pantoprazole for GI prophylaxis * GENITOURINARY: HANS secondary to hemodynamically mediated/VMN Indwelling Richey catheter Acute complicated cystitis * UA shows leukocyte esterase 1+, WBC and bacteria * Plan: IVF, cefepime IV antibiotic * follow urine culture HEMATOLOGY: Macrocytic anemia likely hypothyroidism Leukocytosis * Plan: Vitamin B12, CBC METABOLIC: Newly diagnosed hypothyroidism Vitamin-D deficiency * Indicated IV levothyroxine (loading dose 200 mcg and 50 mcg p.o. daily) * Cortisol was elevated-25.09. Hydrocortisone 100 mg IV hold for now. * TSH 61 and reduced T4 and T3. will order T4 and T3 q.48h. * Plan: Continue levothyroxine 50 mcg IV daily, thyroid USG, vitamin-D 03545 Q weekly INFECTIOUS DISEASE: Sepsis due to UTI/aspiration pneumonia Gram-positive Gram-negative bacteria Aspiration pneumonia due to myxedema coma. Complicated cystitis Lactic acidosis * PLAN: Continue IV antibiotic-cefepime Obtained lacy-cultures (blood, urine, sputum) Musculoskeletal/skin Gait instability * Dry skin due to hypothyroidism * Use cane at home for ambulation * Plan: Monitor skin breakdown DIET: REGULAR DIET DVT prophylax: Lovenox GI prophylaxis: Protonix Bowel regimen: Lactulose Code status: Full code LINES/DRAINS/ACCESS: IV access: Right subclavian 12/30/2024, triple lumen catheter in groin Drips: s/p Levophed Richey catheter: Changed on 12/30/2024 DISPOSITION: ICU Patient's status discussed with patient's son and brother Critical care time spent more than 69 minutes, including patient care, chart review, and updating the family. Excluding any procedures Case discussed with Dr. Mast Plan discussed with: Patient, Son (Jones), Other (Nurse, brother-Tashi) My Orders My Orders Orders - CONNER SANDRA Procedure Category Date Status Time Ergocalciferol PHA 12/30/24 In Process (Vitamin D 50,000 10:30 Cyanocobalamin PHA 12/31/24 In Process (Vitamin B-12) 10:00 Date of Service: Dec 30, 2024 Billing Provider: ELEANOR MAST MD Common Visit Codes: [id number] CARE 30-74 MIN CONNER SANDRA Dec 30, 2024 12:04 ELEANOR MAST MD Dec 31, 2024 15:55
--- NOTE | 2024-12-30 20:38 | DVH ---
CLINICAL HISTORY: Hypothyroidism TECHNIQUE: Ultrasound exam of the thyroid gland was performed using grayscale and color doppler imagi ng. COMPARISON: None FINDINGS: Evaluation is limited due to patient condition, resulting in very superficial skin. The right lobe of the thyroid gland is heterogeneous in echogenicity and measures 1.5 x 1.5 x 4.1 cm. There is no suspicious nodule or area or calcification. The left lobe of the thyroid gland is heterogeneous in echogenicity and measures 1.6 x 1.0 x 4.2 cm. There is no suspicious nodule or area or calcification. The isthmus measures 0.3 cm. IMPRESSION: Limited exam with no definite discrete thyroid nodule.
[2024-12-31] VITALS (97 sets, daily range): BP systolic 93–149; BP diastolic 43–89; PULSE 52–81; RESP 8–17; TEMP 98.1–98.4; O2SAT 84–100
[2024-12-31 05:07] LABS: Hematocrit 31.3 % (36.0-46.0); Hemoglobin 10.5 g/dL (12.2-16.2); Mean Corpuscular Hemoglobin 33.4 pg (28.0-32.0); Mean Corpuscular Volume 99.8 fL (80.0-100.0); Nucleated Red Blood Cells % 0.0 %
[2024-12-31 05:15] LABS: Sodium 145 mmol/L (136-145)
[2024-12-31 05:16] LABS: Anion Gap 10 (5-15); Carbon Dioxide 22 mmol/L (20-31)
[2024-12-31 05:22] LABS: BUN/Creatinine Ratio 13.2 (10.0-20.0); Blood Urea Nitrogen 16 mg/dL (9-23)
[2024-12-31 05:35] LABS: Calcium 8.0 mg/dL (8.7-10.4); Chloride 113 mmol/L (98-107); Cholesterol 261 mg/dL (< 200); Glucose 113 mg/dL (74-106); HDL Cholesterol 36 mg/dL (40-59); Potassium 3.5 mmol/L (3.5-5.1); Triglycerides 225 mg/dL (< 150)
[2024-12-31] MEDS: PANTOPRAZOLE 40 MG TAB PO SCH (05:44)
[2024-12-31] MEDS: LEVOTHYROXINE SODIUM 50 MCG TAB PO SCH ×2 (05:44→16:45)
--- NOTE | 2024-12-31 08:39 | DVHPNRES ---
Progress Note Date Seen: Dec 31, 2024 Resident Creating Document: CONNER SANDRA RESIDENT Medical Necessity Reason Pt with a Central, PICC or Fol: Yes The following are medically ne: Central Line (Triple-lumen catheter on right groin), Richey Catheter Subjective Review of Systems This is a 64-year-old female with known past medical history BIBEMS with chief complaint of altered level of consciousness. As per brother, patient mental status is getting worsen day by day approximately last 5 years but suddenly worsen past week. Patient lives with her mom who is 86-year-old, not follow-up with any physician last 10 years. Never seen by any cardiology, endocrine are neurologist. Patient use cane at home for ambulation and recurrent history of fall but denies any head trauma. During admission, Alexander score 11. Patient seen and evaluated in bedside in ER. s/p Levophed due to hypotension. Patient able to answer questions but delay and incomplete, appears confused, sensory and motor movement intact. Currently Salome coma scale 15. Past medical history: Kidney stone Past surgical history: Tumor removal 2013 unknown side Social history; smoking daily pack per day-40 years, remote history of substance abuse Family [id number] Allergic: Acetaminophen, hydrocodone PCP: Not selected Home medication: None 12/30: Patient seen and evaluated in bedside. Patient answered question but slow. Continue Levophed for hypotension. Monitor labs and vital. 12/31: Patient seen and evaluated in bedside. No acute event overnight, currently on pressor. Monitor vitals and lab. Serum cortisol level SUNDAY A.M.. Objective vital signs Vital Sign Date Time Temp Pulse Resp B/P (MAP) Pulse Ox O2 Delivery O2 Flow Rate FiO2 12/31/24 06:45 57 9 99/53 (68) 99 12/31/24 06:00 Nasal Cannula* 2 28 12/31/24 04:00 98.2 98.2 Total Intake and Output 12/30/24 12/30/24 12/31/24 15:00 23:00 07:00 Intake Total 367.50 ml 792.5 ml 581.25 ml Output Total 450 ml 950 ml Balance 367.50 ml 342.5 ml -368.75 ml medications Current Medications Medications Dose Ordered Sig/Jermain Route Start Time Stop Time Status Last Admin Dose Admin Cefepime HCl 50 ml @ 12.5 mls/hr Q8HR IV 12/29/24 22:00 12/31/24 05:44 12.5 MLS/HR Acetaminophen 325 mg Q4HP PRN PO 12/30/24 01:00 Ondansetron HCl 4 mg Q4HP PRN IV 12/30/24 01:00 Morphine Sulfate 2 mg Q4HPRN PRN IV 12/30/24 01:00 Enoxaparin Sodium 40 mg DAILY SC 12/30/24 10:00 12/30/24 08:56 40 MG Sodium Chloride 1,000 ml @ 75 mls/hr [id number] IV 12/30/24 01:15 12/31/24 03:55 75 MLS/HR Norepinephrine Bitartrate 250 ml @ 3.75 mls/hr Q24H IV 12/30/24 03:45 12/30/24 12:44 3.75 MLS/HR Ergocalciferol 50,000 unit Q7D PO 12/30/24 10:30 Cyanocobalamin 1,000 mcg DAILY PO 12/31/24 10:00 Levothyroxine Sodium 50 mcg QAM@0600 PO 12/31/24 06:00 12/31/24 05:44 50 MCG Pantoprazole Sodium 40 mg DAILY@0700 PO 12/31/24 07:00 12/31/24 05:44 40 MG Examination Patient lying in bed, in no acute distress General: arousable, afebrile, mucosae are dry, alopecia in eyebrows and left temporal side of head. Eyelids are edematous. Macroglossia Cardiovascular: Normal S1 and S2. No murmurs, gallops or rubs Respiratory: Normal ventilation mechanics. Clear lung sounds on auscultation Abdomen: Soft, nontender, no organomegaly, normal bowel sounds MSK/skin: Mobilizes 4 limbs. Skin is dry and scaly, mixed edematous skin. Neurological: Oriented in 3 spheres. Hyporeflexia. No motor no sensitive deficits. Pupils are isocoric and reactive laboratory and microbiology Laboratory Tests 12/31/24 04:40 Test 12/31/24 04:40 Range/Units Serum Glucose 113 H 74-106 mg/dL Microbiology Date/Time Source Procedure Growth Status 12/29/24 18:48 Blood Blood Culture - Preliminary NO GROWTH AFTER 24 HOURS OF INCUBATION. Resulted Problem List/Assessment/Plan Problem List/Assessment/Plan This is a 64-year-old female with known past medical history BIBEMS with chief complaint of altered level of consciousness. As per brother, patient mental status is getting worsen day by day approximately last 5 years but suddenly worsen past week. Patient lives with her mom who is 86-year-old, not follow-up with any physician last 10 years. Never seen by any cardiology, endocrine are neurologist. Patient use cane at home for ambulation and recurrent history of fall but denies any head trauma. During admission, Salome score 11. Patient seen and evaluated in bedside in ER. s/p Levophed due to hypotension. P atient presents clinical features of hypothyroidism (alopecia, palpebral myxedema, hyporeflexia, macroglossia, dry skin, cold intolerance, pretibial myxedema). Features of myxedema, is decreased mental status, hypothermia.P atient able to answer questions but delay and incomplete, appears confused, sensory and motor movement intact. Currently Alexander coma scale 15. NEUROLOGY Myxedema coma Metabolic encephalopathy secondary to sepsis due to pneumonia/UTI RASS-0 * PLAN: Neuro check, monitor patient closely. CARDIOVASCULAR: Hypotensive shock secondary to sepsis need pressor Ruled out cardiomyopathy Mixed hyperlipidemia * Echocardiogram 12/31/2024-showed LVEF 65%, moderate degree of left ventricular hypertrophy, slightly dilated left atrium and right atrium, no pericardial effusion, * Plan; monitor blood pressure and vital, Levophed PULMONARY: Consider aspiration pneumonia due to myxedema coma/AMS Acute hypoxic respiratory failure due to pneumonia Gram-positive/Gram-negative * Patient currently on nasal cannula with 2 L/min on admission * CXR-showed left medial basilar atelectasis/pneumonia * Plan: IV antibiotic, desaturate oxygen GASTROINTESTINAL: * Plan: Pantoprazole for GI prophylaxis GENITOURINARY: HANS secondary to hemodynamically mediated/VMN Indwelling Richey catheter Acute complicated cystitis * UA shows leukocyte esterase 1+, WBC and bacteria * Plan: IVF, cefepime IV antibiotic * Urine culture preliminary shows Gram-negative Myke. HEMATOLOGY: Macrocytic anemia likely hypothyroidism Leukocytosis * Plan: Vitamin B12, CBC METABOLIC: Newly diagnosed severe hypothyroidism Vitamin-D deficiency * Indicated IV levothyroxine (loading dose 200 mcg and 50 mcg p.o. daily) * Cortisol was elevated-25.09. Hydrocortisone 100 mg IV hold for now. * Ultrasound thyroid-no masses or significant abnormality. * TSH 61>30.1 and reduced T4 and T3. * Plan: Continue levothyroxine 75 mcg po daily instead of levothyroxine 50 mcg, thyroid USG, vitamin-D 42383 Q weekly, cortisol on Sunday a.m. INFECTIOUS DISEASE: Sepsis due to UTI/aspiration pneumonia Gram-positive Gram-negative bacteria Aspiration pneumonia due to myxedema coma. Complicated cystitis Lactic acidosis * PLAN: Continue IV antibiotic-cefepime Obtained lacy-cultures (blood, urine, sputum) Musculoskeletal/skin Gait instability * Dry skin due to hypothyroidism * Use cane at home for ambulation * Plan: Monitor skin breakdown, physical therapy. DIET: REGULAR DIET DVT prophylax: Lovenox GI prophylaxis: Protonix Bowel regimen: Lactulose Code status: Full code LINES/DRAINS/ACCESS: IV access: triple lumen catheter in groin Drips: Levophed Richey catheter: Changed on 12/30/2024 DISPOSITION: ICU Patient's status discussed with patient's son (Jones) . Explained son patient will be benefitted with family visit. Critical care time spent more than 57 minutes, including patient care, chart review, and updating the family. Excluding any procedures Case discussed with Dr. Mast Plan discussed with: Patient, Other (Nurse, brother-Tashi) My Orders My Orders Orders - CONNER SANDRA Procedure Category Date Status Time Ergocalciferol PHA 12/30/24 In Process (Vitamin D 50,000 10:30 Cyanocobalamin PHA 12/31/24 In Process (Vitamin B-12) 10:00 Regular Diet DIET 12/30/24 Transmitted Dinner Levothyroxine Tablet PHA 12/31/24 In Process (Synthroid Tablet) 06:00 Pantoprazole Tablet PHA 12/31/24 In Process (Protonix Tablet) 07:00 Thyroid US 12/30/24 Resulted 18:54 Mrsa Screen NATALIA 12/30/24 In Process 23:30 Date of Service: Dec 31, 2024 Billing Provider: ELEANOR MAST MD Common Visit Codes: [id number] CARE 30-74 MIN CONNER SANDRA Dec 31, 2024 08:39 ELEANOR MAST MD Jan 01, 2025 13:04
--- NOTE | 2024-12-31 10:01 | DVHSR ---
APPROVED REPORT EXAM: Two-dimensional and M-mode echocardiogram with Doppler and color Doppler. Blood Pressure: 76/45 mmHg INDICATION Severe hypothyroidism RISK FACTORS Height: 67, Weight: 162 DIMENSIONS LVDd4.6 (3.8-5.7cm)LA (2D)3.7 (1.9-4.0cm)Aortic Root4.0 (2.0-3.7cm) LVDs3.3 (2.5-4.0cm)LA (MM) (1.9-4.0cm)Aortic Cusp Exc1.8 (1.5-2.0cm) EF (%) 56.0 (55-70%)Rt. Atrium2.9 (1.9-4.0cm)Asc. Aorta cm IVSd1.2 (0.7-1.1cm)RV (D) (1.8-2.4cm) PWd1.3 (0.7-1.1cm) Mitral Valve MitralMitral Stenosis E wave0.81m/sMV Mean GR.mmHg A wave0.99m/sMV Peak GR.97mmHg E/A ratio0.82D MVAcm2 DECEL [id number] 1/2 [id number] IVRTmsDop MVA2.29cm2 Aortic Valve Aortic ValveAortic Stenosis V11.20m/Amelie Mean GR.3mmHg V21.21m/Amelie Peak GR.6mmHg LVOT Diameter1.9 (1.8-2.4cm)Doppler AVA2.81cm2 AI P 1/2 Wivq534.98ms Pulmonic Valve V20.66m/s Tricuspid Valve TR Velocity2.09m/s [id number] Conclusion MODERATE DEGREE LVH AND MODERATE DEGREE LV DIASTOLIC DYSFUNCTION LV EF IS 65% SLIGHTLY DILATED LA AND RA NORMAL VALVES NO EFFUSION
[2024-12-31] MEDS: CYANOCOBALAMIN 500 MCG TAB PO SCH (10:49)
[2024-12-31] MEDS ORDERED: LACTULOSE 20Gm/30ML SOLN PO PRN (16:45)
[2024-12-31] MEDS: LEVOTHYROXINE SODIUM 25 MCG TAB PO ONE (16:45)
[2024-12-31] MEDS: CEFEPIME 2GM/50ML NS 50 ML IV SCH (21:34)
[2025-01-01] VITALS (66 sets, daily range): BP systolic 84–141; BP diastolic 49–99; PULSE 59–79; RESP 9–19; TEMP 98.1–98.5; O2SAT 89–100
[2025-01-01] MEDS: NOREPINEPHRINE 8 MG/250ML KIT 250 ML IV SCH (03:00)
[2025-01-01 03:50] LABS: Hematocrit 29.6 % (36.0-46.0); Hemoglobin 9.9 g/dL (12.2-16.2); Mean Corpuscular Hemoglobin 33.6 pg (28.0-32.0); Mean Corpuscular Volume 100.5 fL (80.0-100.0); Nucleated Red Blood Cells % 0.0 %
[2025-01-01 04:08] LABS: Anion Gap 9 (5-15); Carbon Dioxide 24 mmol/L (20-31)
[2025-01-01 04:12] LABS: Calcium 8.3 mg/dL (8.7-10.4); Chloride 114 mmol/L (98-107); Potassium 3.2 mmol/L (3.5-5.1); Sodium 147 mmol/L (136-145)
[2025-01-01 04:14] LABS: BUN/Creatinine Ratio 11.1 (10.0-20.0); Blood Urea Nitrogen 13 mg/dL (9-23); Glucose 91 mg/dL (74-106)
[2025-01-01] MEDS: POTASSIUM CHL 20MEQ/100ML 100 ML IV ONE (05:28)
[2025-01-01] MEDS ORDERED: POTASSIUM CHL 20 Meq TABLET PO ONE (07:45)
--- NOTE | 2025-01-01 07:46 | DVHPNRES ---
Progress Note Date Seen: Jan 01, 2025 Resident Creating Document: CONNER SANDRA RESIDENT Medical Necessity Reason Pt with a Central, PICC or Fol: Yes The following are medically ne: Central Line (Triple-lumen catheter on right groin), Richey Catheter Subjective Review of Systems This is a 64-year-old female with known past medical history BIBEMS with chief complaint of altered level of consciousness. As per brother, patient mental status is getting worsen day by day approximately last 5 years but suddenly worsen past week. Patient lives with her mom who is 86-year-old, not follow-up with any physician last 10 years. Never seen by any cardiology, endocrine are neurologist. Patient use cane at home for ambulation and recurrent history of fall but denies any head trauma. During admission, Alexander score 11. Patient seen and evaluated in bedside in ER. s/p Levophed due to hypotension. Patient able to answer questions but delay and incomplete, appears confused, sensory and motor movement intact. Currently [place] coma scale 15. Past medical history: Kidney stone Past surgical history: Tumor removal 2013 unknown side Social history; smoking daily pack per day-40 years, remote history of substance abuse Family [id number] Allergic: Acetaminophen, hydrocodone PCP: Not selected Home medication: None 12/30: Patient seen and evaluated in bedside. Patient answered question but slow. Continue Levophed for hypotension. Monitor labs and vital. 12/31: Patient seen and evaluated in bedside. No acute event overnight, currently on pressor. Monitor vitals and lab. Serum cortisol level SUNDAY A.M.. 01/01: Patient seen and evaluated in bedside. Monitor vital and off Levophed. Cefepime IV antibiotic switch to ceftriaxone. Patient will be benefitted with physical therapy. Objective vital signs Vital Sign Date Time Temp Pulse Resp B/P (MAP) Pulse Ox O2 Delivery O2 Flow Rate FiO2 01/01/25 06:45 60 11 98/55 (69) 99 01/01/25 06:00 Nasal Cannula* 2 28 01/01/25 04:00 98.2 98.2 Total Intake and Output 12/31/24 12/31/24 01/01/25 15:00 23:00 07:00 Intake Total 783.72 ml 1026.235 ml 550 ml Output Total 350 ml 1000 ml Balance 783.72 ml 676.235 ml -450 ml medications Current Medications Medications Dose Ordered Sig/Jermain Route Start Time Stop Time Status Last Admin Dose Admin Acetaminophen 325 mg Q4HP PRN PO 12/30/24 01:00 Ondansetron HCl 4 mg Q4HP PRN IV 12/30/24 01:00 Morphine Sulfate 2 mg Q4HPRN PRN IV 12/30/24 01:00 Enoxaparin Sodium 40 mg DAILY SC 12/30/24 10:00 12/31/24 11:05 40 MG Ergocalciferol 50,000 unit Q7D PO 12/30/24 10:30 Cyanocobalamin 1,000 mcg DAILY PO 12/31/24 10:00 12/31/24 10:49 1,000 MCG Pantoprazole Sodium 40 mg DAILY@0700 PO 12/31/24 07:00 01/01/25 05:28 40 MG Levothyroxine Sodium 75 mcg QAM@0600 PO 12/31/24 16:45 01/01/25 05:29 75 MCG Lactulose 30 ml DAILYPRN PRN PO 12/31/24 16:45 Cefepime HCl 50 ml @ 12.5 mls/hr Q12HR IV 12/31/24 22:00 12/31/24 21:34 12.5 MLS/HR Norepinephrine Bitartrate 250 ml @ 3.75 mls/hr Q24H IV 12/31/24 10:00 01/01/25 03:00 1.875 MLS/HR Examination Patient lying in bed, in no acute distress General: arousable, afebrile, mucosae are dry, alopecia in eyebrows and left temporal side of head. Eyelids are edematous. Macroglossia Cardiovascular: Normal S1 and S2. No murmurs, gallops or rubs Respiratory: Normal ventilation mechanics. Clear lung sounds on auscultation Abdomen: Soft, nontender, no organomegaly, normal bowel sounds, abdominal wall hernia present MSK/skin: Mobilizes 4 limbs. Skin is dry and scaly, mixed edematous skin. Neurological: Oriented in 3 spheres. Hyporeflexia. No motor no sensitive deficits. Delayed ankle reflex. Pupils are isocoric and reactive laboratory and microbiology Laboratory Tests 01/01/25 03:21 Test 01/01/25 03:21 Range/Units Serum Glucose 91 74-106 mg/dL Microbiology Date/Time Source Procedure Growth Status 12/31/24 00:19 Nose MRSA Screen - Final Complete 12/29/24 21:00 Voided Urine Urine Culture - Preliminary Resulted 12/29/24 18:48 Blood Blood Culture - Preliminary NO GROWTH AFTER 48 HOURS OF INCUBATION. Resulted Problem List/Assessment/Plan Problem List/Assessment/Plan This is a 64-year-old female with known past medical history BIBEMS with chief complaint of altered level of consciousness. As per brother, patient mental status is getting worsen day by day approximately last 5 years but suddenly worsen past week. Patient lives with her mom who is 86-year-old, not follow-up with any physician last 10 years. Never seen by any cardiology, endocrine are neurologist. Patient use cane at home for ambulation and recurrent history of fall but denies any head trauma. During admission, Alexander score 11. Patient seen and evaluated in bedside in ER. s/p Levophed due to hypotension. P atient presents clinical features of hypothyroidism (alopecia, palpebral myxedema, hyporeflexia, macroglossia, dry skin, cold intolerance, pretibial myxedema). Features of myxedema, is decreased mental status, hypothermia.P atient able to answer questions but delay and incomplete, appears confused, sensory and motor movement intact. NEUROLOGY Myxedema coma Metabolic encephalopathy secondary to sepsis due to pneumonia/UTI RASS-0 * PLAN: Neuro check, monitor patient closely. CARDIOVASCULAR: Hypotensive shock secondary to sepsis need pressor Ruled out cardiomyopathy Mixed hyperlipidemia * Echocardiogram 12/31/2024-showed LVEF 65%, moderate degree of left ventricular hypertrophy, slightly dilated left atrium and right atrium, no pericardial effusion, * Plan; monitor blood pressure and vital, off Levophed. PULMONARY: Consider aspiration pneumonia due to myxedema coma/AMS Acute hypoxic respiratory failure due to pneumonia Gram-positive/Gram-negative * Patient currently on nasal cannula with 2 L/min on admission * CXR-showed left medial basilar atelectasis/pneumonia * Plan: IV antibiotic, desaturate oxygen GASTROINTESTINAL: * Plan: Pantoprazole for GI prophylaxis GENITOURINARY: HANS secondary to hemodynamically mediated/VMN Klebsiella pneumoniae urinary tract infection Indwelling Richey catheter Acute complicated cystitis * UA shows leukocyte esterase 1+, WBC and bacteria * Plan: IVF, discontinue cefepime IV antibiotic and started ceftriaxone on 01/01/2025. * Urine culture growth Klebsiella pneumoniae. HEMATOLOGY: Macrocytic anemia likely hypothyroidism Leukocytosis * Plan: Vitamin B12, CBC. METABOLIC: Newly diagnosed severe hypothyroidism Vitamin-D deficiency * Indicated IV levothyroxine (loading dose 200 mcg and 50 mcg p.o. daily) on admission * Cortisol was elevated-25.09. Hydrocortisone 100 mg IV hold for now. * Ultrasound thyroid-no masses or significant abnormality. * TSH 61>30.1 and reduced T4 and T3. * Plan: Continue levothyroxine 75 mcg po daily instead of levothyroxine 50 mcg, thyroid USG, vitamin-D 77489 Q weekly, a.m. cortisol INFECTIOUS DISEASE: Sepsis due to UTI/aspiration pneumonia Gram-positive Gram-negative bacteria Aspiration pneumonia due to myxedema coma. Complicated cystitis Lactic acidosis * PLAN: Continue IV antibiotic-cefepime Blood culture x2 negative, MRSA nasal screen negative. Musculoskeletal/skin Gait instability * Dry skin due to hypothyroidism * Use cane at home for ambulation * Plan: Monitor skin breakdown, physical therapy. DIET: REGULAR DIET DVT prophylax: Lovenox GI prophylaxis: Protonix Bowel regimen: Lactulose Code status: Full code LINES/DRAINS/ACCESS: IV access: triple lumen catheter in groin Drips: OFF Levophed Richey catheter: on 12/30/2024 DISPOSITION: RICH. Patient's status discussed with patient's son (Jones) .Patient will be benefitted with family visit. Critical care time spent more than 49 minutes, including patient care, chart review, and updating the family. Excluding any procedures. Case discussed with Dr. Mast Plan discussed with: Patient, Son (Jones), Other (Nurse) My Orders My Orders Orders - CONNER SANDRA Procedure Category Date Status Time Levothyroxine Tablet PHA 12/31/24 In Process (Synthroid Tablet) 16:45 Lactulose Oral PHA 12/31/24 In Process 16:45 * Lumber Estimator CONS 12/31/24 Transmitted Consult Pt Request For Service PT 12/31/24 Logged 16:45 Potassium Er Tablet PHA 01/01/25 Transmitted (Klor-Con Tablet) 07:45 Date of Service: Jan 01, 2025 Billing Provider: ELEANOR MAST MD Common Visit Codes: [id number] CARE 30-74 MIN CONNER SANDRA Jan 01, 2025 07:46 ELEANOR MAST MD Jan 03, 2025 12:02
[2025-01-01] MEDS: POTASSIUM CHL 20 Meq TABLET PO ONE (09:42)
[2025-01-02] VITALS (27 sets, daily range): BP systolic 107–158; BP diastolic 40–93; PULSE 57–73; RESP 7–28; TEMP 97.7–98.7; O2SAT 87–97
[2025-01-02 03:54] LABS: Hematocrit 29.9 % (36.0-46.0); Hemoglobin 10.2 g/dL (12.2-16.2); Mean Corpuscular Hemoglobin 33.9 pg (28.0-32.0); Mean Corpuscular Volume 99.7 fL (80.0-100.0); Nucleated Red Blood Cells % 0.1 %
[2025-01-02 04:31] LABS: Anion Gap 9 (5-15); Carbon Dioxide 25 mmol/L (20-31)
[2025-01-02 04:36] LABS: Glucose 90 mg/dL (74-106)
[2025-01-02 04:37] LABS: BUN/Creatinine Ratio 10.7 (10.0-20.0); Blood Urea Nitrogen 13 mg/dL (9-23); Iron 30.0 ug/dL (50-170); Total Iron Binding Capacity 232.0 ug/dL (250-425)
[2025-01-02 04:38] LABS: Ferritin 140.3 ng/mL (10-291)
[2025-01-02 04:57] LABS: Calcium 8.5 mg/dL (8.7-10.4); Chloride 113 mmol/L (98-107); Potassium 3.2 mmol/L (3.5-5.1); Sodium 147 mmol/L (136-145)
[2025-01-02] MEDS: POTASSIUM CHL 20MEQ/100ML 0 ML IV ONE (05:14)
[2025-01-02] MEDS: POTASSIUM CHL 20MEQ/100ML 100 ML IV SCH (05:14)
--- NOTE | 2025-01-02 16:36 | DVHPNRES ---
Progress Note Date Seen: Jan 02, 2025 Resident Creating Document: CONNER SANDRA RESIDENT Medical Necessity Reason Pt with a Central, PICC or Fol: Yes The following are medically ne: Richey Catheter Subjective Review of Systems This is a 64-year-old female with known past medical history BIBEMS with chief complaint of altered level of consciousness. As per brother, patient mental status is getting worsen day by day approximately last 5 years but suddenly worsen past week. Patient lives with her mom who is 86-year-old, not follow-up with any physician last 10 years. Never seen by any cardiology, endocrine are neurologist. Patient use cane at home for ambulation and recurrent history of fall but denies any head trauma. During admission, Alexander score 11. Patient seen and evaluated in bedside in ER. s/p Levophed due to hypotension. Patient able to answer questions but delay and incomplete, appears confused, sensory and motor movement intact. Currently Alexander coma scale 15. Past medical history: Kidney stone Past surgical history: Tumor removal 2012 unknown side Social history; smoking daily pack per day-40 years, remote history of substance abuse Family [id number] Allergic: Acetaminophen, hydrocodone PCP: Not selected Home medication: None 12/30: Patient seen and evaluated in bedside. Patient answered question but slow. Continue Levophed for hypotension. Monitor labs and vital. 12/31: Patient seen and evaluated in bedside. No acute event overnight, currently on pressor. Monitor vitals and lab. Serum cortisol level SUNDAY A.M.. 01/01: Patient seen and evaluated in bedside. Monitor vital and off Levophed. Cefepime IV antibiotic switch to ceftriaxone. Patient will be benefitted with physical therapy. 01/02: Patient seen and evaluated in bedside. Patient off any pressors since yesterday, transferred to med surg. Monitor vital and labs. Objective vital signs Vital Sign Date Time Temp Pulse Resp B/P (MAP) Pulse Ox O2 Delivery O2 Flow Rate FiO2 01/02/25 15:00 66 11 131/83 (99) 87 01/02/25 14:19 Room Air* 0 21 01/02/25 12:00 98.2 98.2 Total Intake and Output 01/01/25 01/01/25 01/02/25 15:00 23:00 07:00 Intake Total 290.0 ml 1310 ml 645 ml Output Total 850 ml 1250 ml Balance 290.0 ml 460 ml -605 ml medications Current Medications Medications Dose Ordered Sig/Jermain Route Start Time Stop Time Status Last Admin Dose Admin Acetaminophen 325 mg Q4HP PRN PO 12/30/24 01:00 Ondansetron HCl 4 mg Q4HP PRN IV 12/30/24 01:00 Morphine Sulfate 2 mg Q4HPRN PRN IV 12/30/24 01:00 Enoxaparin Sodium 40 mg DAILY SC 12/30/24 10:00 01/02/25 08:26 40 MG Ergocalciferol 50,000 unit Q7D PO 12/30/24 10:30 Cyanocobalamin 1,000 mcg DAILY PO 12/31/24 10:00 01/02/25 08:25 1,000 MCG Pantoprazole Sodium 40 mg DAILY@0700 PO 12/31/24 07:00 01/02/25 06:00 40 MG Levothyroxine Sodium 75 mcg QAM@0600 PO 12/31/24 16:45 01/02/25 05:59 75 MCG Lactulose 30 ml DAILYPRN PRN PO 12/31/24 16:45 Ceftriaxone Sodium 50 ml @ 100 mls/hr DAILY@09 IV 01/02/25 09:00 01/02/25 08:26 100 MLS/HR Examination Patient lying in bed, in no acute distress General: arousable, afebrile, mucosae are dry, alopecia in eyebrows and left temporal side of head. Eyelids are edematous. Macroglossia Cardiovascular: Normal S1 and S2. No murmurs, gallops or rubs Respiratory: Normal ventilation mechanics. Clear lung sounds on auscultation Abdomen: Soft, nontender, no organomegaly, normal bowel sounds, abdominal wall hernia present MSK/skin: Mobilizes 4 limbs. Skin is dry and scaly, mixed edematous skin. Neurological: Oriented in 3 spheres. No motor no sensitive deficits. Delayed ankle reflex. Pupils are isocoric and reactive laboratory and microbiology Laboratory Tests 01/02/25 03:24 Test 01/02/25 03:24 Range/Units Serum Glucose 90 74-106 mg/dL Microbiology Date/Time Source Procedure Growth Status 12/31/24 08:55 Urine - R[facility]y Port Urine Culture - Final Complete 12/31/24 00:19 Nose MRSA Screen - Final Complete 12/29/24 18:48 Blood Blood Culture - Preliminary Resulted Problem List/Assessment/Plan Problem List/Assessment/Plan This is a 64-year-old female with known past medical history BIBEMS with chief complaint of altered level of consciousness. As per brother, patient mental status is getting worsen day by day approximately last 5 years but suddenly worsen past week. Patient lives with her mom who is 86-year-old, not follow-up with any physician last 10 years. Never seen by any cardiology, endocrine are neurologist. Patient use cane at home for ambulation and recurrent history of fall but denies any head trauma. During admission, Alexander score 11. Patient seen and evaluated in bedside in ER. s/p Levophed due to hypotension. P atient presents clinical features of hypothyroidism (alopecia, palpebral myxedema, hyporeflexia, macroglossia, dry skin, cold intolerance, pretibial myxedema). Features of myxedema, is decreased mental status, hypothermia.P atient able to answer questions but delay and incomplete, appears confused, sensory and motor movement intact. NEUROLOGY Myxedema coma Metabolic encephalopathy secondary to sepsis due to pneumonia/UTI RASS-0 * PLAN: Neuro check, monitor patient closely. CARDIOVASCULAR: Hypotensive shock secondary to sepsis need pressor Ruled out cardiomyopathy Mixed hyperlipidemia * Echocardiogram 12/31/2024-showed LVEF 65%, moderate degree of left ventricular hypertrophy, slightly dilated left atrium and right atrium, no pericardial effusion, * Plan; monitor blood pressure and vital, off Levophed. PULMONARY: Consider aspiration pneumonia due to myxedema coma/AMS Acute hypoxic respiratory failure due to pneumonia Gram-positive/Gram-negative * Patient currently on nasal cannula with 2 L/min on admission * CXR-showed left medial basilar atelectasis/pneumonia * Plan: IV antibiotic, desaturate oxygen GASTROINTESTINAL: * Plan: Pantoprazole for GI prophylaxis GENITOURINARY: HANS secondary to hemodynamically mediated/VMN Klebsiella pneumoniae urinary tract infection Indwelling Richey catheter Acute complicated cystitis * UA shows leukocyte esterase 1+, WBC and bacteria * Plan: IVF, discontinue cefepime IV antibiotic and started ceftriaxone on 01/01/2025. * Urine culture growth Klebsiella pneumoniae. HEMATOLOGY: Macrocytic anemia likely hypothyroidism Leukocytosis * Ferritin 40.3, iron 30, TIBC 232, percentage of saturation 129 * Plan: Vitamin B12, CBC. METABOLIC: Newly diagnosed severe hypothyroidism Vitamin-D deficiency * Indicated IV levothyroxine (loading dose 200 mcg and 50 mcg p.o. daily) on admission * Cortisol was elevated-25.09. Discontinue Hydrocortisone. * Ultrasound thyroid-no masses or significant abnormality. * TSH 61>30.1 and reduced T4 and T3. * A.m. cortisol level 15.72 on 01/02/2025 * Plan: Continue levothyroxine 75 mcg po daily vitamin-D 17708 Q weekly INFECTIOUS DISEASE: Sepsis due to UTI/aspiration pneumonia Gram-positive Gram-negative bacteria Aspiration pneumonia due to myxedema coma. Complicated cystitis Lactic acidosis * PLAN: Continue IV antibiotic-cefepime Blood culture x2 negative, MRSA nasal screen negative. Musculoskeletal/skin Gait instability * Dry skin due to hypothyroidism * Use cane at home for ambulation * Plan: Monitor skin breakdown, physical therapy. DIET: REGULAR DIET DVT prophylax: Lovenox GI prophylaxis: Protonix Bowel regimen: Lactulose Code status: Full code LINES/DRAINS/ACCESS: IV access: Peripheral line Drips: none Richey catheter: on 12/30/2024 DISPOSITION: [facility]. Patient's status discussed with patient's brother-Tashi .Patient will be benefitted with family visit. Critical care time spent more than 61 minutes, including patient care, chart review, and updating the family. Excluding any procedures. Case discussed with Dr. Terry Plan discussed with: Patient, Other (Nurse, mother-Carmela) My Orders My Orders Orders - CONNER SANDRA Procedure Category Date Status Time Ceftriaxone 1gm/50ml PHA 01/02/25 In Process (Rocephin) 09:00 Transfer Orders XFER 01/02/25 Transmitted 16:25 CONNER SANDRA Jan 02, 2025 16:36
[2025-01-03] VITALS (7 sets, daily range): BP systolic 122–169; BP diastolic 76–99; PULSE 56–67; RESP 13–18; TEMP 97.6–98.6; O2SAT 92–96
[2025-01-03 08:04] LABS: Alanine Aminotransferase 11 U/L (7-40); Albumin 3.8 g/dL (3.2-4.8); Alkaline Phosphatase 46 U/L (46-116); Anion Gap 8 (5-15); BUN/Creatinine Ratio 9.4 (10.0-20.0); Blood Urea Nitrogen 9 mg/dL (9-23); Carbon Dioxide 28 mmol/L (20-31); Glucose 92 mg/dL (74-106); Potassium 3.7 mmol/L (3.5-5.1); Sodium 145 mmol/L (136-145); Total Protein 5.8 g/dL (5.7-8.2)
[2025-01-03 08:05] LABS: Bilirubin, Total 0.3 mg/dL (0.2-1.0); Calcium 8.7 mg/dL (8.7-10.4); Chloride 109 mmol/L (98-107)
--- NOTE | 2025-01-03 13:54 | DVHPNRES ---
Progress Note Date Seen: Jan 03, 2025 Resident Creating Document: CONNER SANDRA RESIDENT Medical Necessity Reason Pt with a Central, PICC or Fol: Yes The following are medically ne: Richey Catheter Subjective Review of Systems This is a 64-year-old female with known past medical history BIBEMS with chief complaint of altered level of consciousness. As per brother, patient mental status is getting worsen day by day approximately last 5 years but suddenly worsen past week. Patient lives with her mom who is 86-year-old, not follow-up with any physician last 10 years. Never seen by any cardiology, endocrine are neurologist. Patient use cane at home for ambulation and recurrent history of fall but denies any head trauma. During admission, Alexander score 11. Patient seen and evaluated in bedside in ER. s/p Levophed due to hypotension. Patient able to answer questions but delay and incomplete, appears confused, sensory and motor movement intact. Currently Alexander coma scale 15. Past medical history: Kidney stone Past surgical history: Tumor removal 2012 unknown side Social history; smoking daily pack per day-40 years, remote history of substance abuse Family [id number] Allergic: Acetaminophen, hydrocodone PCP: Not selected Home medication: None 12/30: Patient seen and evaluated in bedside. Patient answered question but slow. Continue Levophed for hypotension. Monitor labs and vital. 12/31: Patient seen and evaluated in bedside. No acute event overnight, currently on pressor. Monitor vitals and lab. Serum cortisol level SUNDAY A.M.. 01/01: Patient seen and evaluated in bedside. Monitor vital and off Levophed. Cefepime IV antibiotic switch to ceftriaxone. Patient will be benefitted with physical therapy. 01/02: Patient seen and evaluated in bedside. Patient off any pressors since yesterday, transferred to med surg. Monitor vital and labs. 01/03: Patient seen and evaluated in bedside today. Patient feeling better and denies any acute distress. Patient looks lethargic, transferred [facility] to med- surg. Physical therapy on board. Objective vital signs Vital Sign Date Time Temp Pulse Resp B/P (MAP) Pulse Ox O2 Delivery O2 Flow Rate FiO2 01/03/25 09:00 98.6 65 16 169/90 (116) 93 98.6 01/02/25 20:00 Room Air* 0 21 Total Intake and Output 10/01/1701/02/25 01/03/25 15:00 23:00 07:00 Intake Total 255 ml 240 ml 800 ml Output Total 1400 ml 1600 ml Balance 255 ml -1160 ml -800 ml medications Current Medications Medications Dose Ordered Sig/Jermain Route Start Time Stop Time Status Last Admin Dose Admin Acetaminophen 325 mg Q4HP PRN PO 12/30/24 01:00 Ondansetron HCl 4 mg Q4HP PRN IV 12/30/24 01:00 Morphine Sulfate 2 mg Q4HPRN PRN IV 12/30/24 01:00 Enoxaparin Sodium 40 mg DAILY SC 12/30/24 10:00 01/03/25 10:57 40 MG Ergocalciferol 50,000 unit Q7D PO 12/30/24 10:30 Cyanocobalamin 1,000 mcg DAILY PO 12/31/24 10:00 01/03/25 10:57 1,000 MCG Pantoprazole Sodium 40 mg DAILY@0700 PO 12/31/24 07:00 01/03/25 06:13 40 MG Levothyroxine Sodium 75 mcg QAM@0600 PO 12/31/24 16:45 01/03/25 05:49 75 MCG Lactulose 30 ml DAILYPRN PRN PO 12/31/24 16:45 Ceftriaxone Sodium 50 ml @ 100 mls/hr DAILY@09 IV 01/02/25 09:00 01/03/25 10:58 100 MLS/HR Examination Patient lying in bed, in no acute distress General: arousable, afebrile, mucosae are dry, alopecia in eyebrows and left temporal side of head. Eyelids are edematous. Macroglossia Cardiovascular: Normal S1 and S2. No murmurs, gallops or rubs Respiratory: Normal ventilation mechanics. Clear lung sounds on auscultation Abdomen: Soft, nontender, no organomegaly, normal bowel sounds, abdominal wall hernia present MSK/skin: Mobilizes 4 limbs. Skin is dry and scaly, mixed edematous skin. Neurological: Oriented in 3 spheres. Hyporeflexia. No motor no sensitive deficits. Delayed ankle reflex. Pupils are isocoric and reactive laboratory and microbiology Laboratory Tests 01/03/25 06:34 01/02/25 03:24 Test 01/03/25 06:34 Range/Units Serum Glucose 92 74-106 mg/dL Microbiology Date/Time Source Procedure Growth Status 12/31/24 08:55 Urine - [facility] [place] Urine Culture - Final Complete 12/31/24 00:19 Nose MRSA Screen - Final Complete 12/29/24 18:48 Blood Blood Culture - Preliminary Resulted Problem List/Assessment/Plan Problem List/Assessment/Plan This is a 64-year-old female with known past medical history BIBEMS with chief complaint of altered level of consciousness. As per brother, patient mental status is getting worsen day by day approximately last 5 years but suddenly worsen past week. Patient lives with her mom who is 86-year-old, not follow-up with any physician last 10 years. Never seen by any cardiology, endocrine are neurologist. Patient use cane at home for ambulation and recurrent history of fall but denies any head trauma. During admission, Alexander score 11. Patient seen and evaluated in bedside in ER. s/p Levophed due to hypotension. Patient presents clinical features of hypothyroidism (alopecia, palpebral myxedema, hyporeflexia, macroglossia, dry skin, cold intolerance, pretibial myxedema). Features of myxedema, is decreased mental status, hypothermia.Patient able to answer questions but delay and incomplete, appears confused, sensory and motor movement intact. NEUROLOGY Myxedema coma Metabolic encephalopathy secondary to sepsis due to pneumonia/UTI RASS-0 PLAN: Neuro check, monitor patient closely. CARDIOVASCULAR: Hypotensive shock secondary to sepsis need pressor Ruled out cardiomyopathy Mixed hyperlipidemia Echocardiogram 12/31/2024-showed LVEF 65%, moderate degree of left ventricular hypertrophy, slightly dilated left atrium and right atrium, no pericardial effusion, Plan; monitor blood pressure and vital. PULMONARY: Consider aspiration pneumonia due to myxedema coma/AMS Acute hypoxic respiratory failure due to pneumonia Gram-positive/Gram-negative Patient currently on nasal cannula with 2 L/min on admission CXR-showed left medial basilar atelectasis/pneumonia Plan: IV antibiotic GASTROINTESTINAL: Plan: Pantoprazole for GI prophylaxis GENITOURINARY: HANS secondary to hemodynamically mediated/VMN Klebsiella pneumoniae urinary tract infection Indwelling Richey catheter Acute complicated cystitis UA shows leukocyte esterase 1+, WBC and bacteria Urine culture growth Klebsiella pneumoniae. Plan: IVF, discontinue cefepime IV antibiotic and ceftriaxone on 01/01/2025 . HEMATOLOGY: Macrocytic anemia likely hypothyroidism Leukocytosis Ferritin 40.3, iron 30, TIBC 232, percentage of saturation 129 Plan: Vitamin B12, CBC. METABOLIC: Newly diagnosed severe hypothyroidism Vitamin-D deficiency Indicated IV levothyroxine (loading dose 200 mcg and 50 mcg p.o. daily) on admission Cortisol was elevated-25.09. Discontinue Hydrocortisone. Ultrasound thyroid-no masses or significant abnormality. TSH 61>30.1 and reduced T4 and T3. A.m. cortisol level 15.72 on 01/02/2025 Plan: Continue levothyroxine 75 mcg po daily vitamin-D 89001 Q weekly INFECTIOUS DISEASE: Sepsis due to UTI/aspiration pneumonia Gram-positive Gram-negative bacteria Aspiration pneumonia due to myxedema coma. Complicated cystitis Lactic acidosis PLAN: Continue IV antibiotic-ceftriaxone Blood culture x2 negative, MRSA nasal screen negative. Musculoskeletal/skin Gait instability Dry skin due to hypothyroidism Use cane at home for ambulation Plan: Monitor skin breakdown, physical therapy-Patient deomstrated an increase in functional abilities and participation. . DIET: REGULAR DIET DVT prophylax: Lovenox GI prophylaxis: Protonix Bowel regimen: Lactulose Code status: Full code LINES/DRAINS/ACCESS: IV access: Peripheral line Drips: none Richey catheter: on 12/30/2024 DISPOSITION: Med-surg Patient's status discussed with patient's brother-Carmela and brother-Reilly. More than 29 minutes spent with patient. Case discussed with Dr. Terry Plan discussed with: Patient, Other (Nurse, brother-REILLY) My Orders My Orders Orders - CONNER SANDRA Procedure Category Date Status Time Transfer Orders XFER 01/02/25 Transmitted 16:25 CONNER SANDRA Jan 03, 2025 13:54
[2025-01-03] MEDS: ACETAMINOPHEN 325 MG TAB PO PRN (13:56)
[2025-01-03] MEDS ORDERED: LEVOTHYROXINE SODIUM 50 MCG TAB PO SCH (15:30)
[2025-01-03] MEDS: LEVOTHYROXINE SODIUM 25 MCG TAB PO ONE (17:54)
[2025-01-04] VITALS (8 sets, daily range): BP systolic 127–171; BP diastolic 72–110; PULSE 60–73; RESP 13–23; TEMP 96.8–98.4; O2SAT 91–96
[2025-01-04] MEDS: LEVOTHYROXINE SODIUM 50 MCG TAB PO SCH (05:57)
[2025-01-04 08:01] LABS: Anion Gap 9 (5-15); Carbon Dioxide 29 mmol/L (20-31)
[2025-01-04 08:02] LABS: Calcium 8.7 mg/dL (8.7-10.4)
[2025-01-04 08:06] LABS: Chloride 107 mmol/L (98-107); Potassium 3.4 mmol/L (3.5-5.1); Sodium 145 mmol/L (136-145)
[2025-01-04 08:07] LABS: BUN/Creatinine Ratio 9.1 (10.0-20.0); Blood Urea Nitrogen 8 mg/dL (9-23); Glucose 75 mg/dL (74-106)
[2025-01-04] MEDS: POTASSIUM EFFERVESENT TAB 25 MEQ PO ONE (10:12)
[2025-01-04 10:17] LABS: Hematocrit 33.7 % (36.0-46.0); Hemoglobin 11.4 g/dL (12.2-16.2); Mean Corpuscular Hemoglobin 33.6 pg (28.0-32.0); Mean Corpuscular Volume 98.9 fL (80.0-100.0); Nucleated Red Blood Cells % 0.0 %
[2025-01-04] MEDS: ACETAMINOPHEN 325 MG TAB PO SCH (14:45)
--- NOTE | 2025-01-04 15:23 | DVHPNRES ---
Progress Note Date Seen: Jan 04, 2025 Resident Creating Document: AVIS REYNOSO RESDIENT Medical Necessity Reason Pt with a Central, PICC or Fol: Yes The following are medically ne: Richey Catheter Subjective Review of Systems This is a 64-year-old female with known past medical history BIBEMS with chief complaint of altered level of consciousness. As per brother, patient mental status is getting worsen day by day approximately last 5 years but suddenly worsen past week. Patient lives with her mom who is 86-year-old, not follow-up with any physician last 10 years. Never seen by any cardiology, endocrine are neurologist. Patient use cane at home for ambulation and recurrent history of fall but denies any head trauma. During admission, [place] score 11. Patient seen and evaluated in bedside in ER. s/p Levophed due to hypotension. Patient able to answer questions but delay and incomplete, appears confused, sensory and motor movement intact. Currently [place] coma scale 15. Past medical history: Kidney stone Past surgical history: Tumor removal 2012 unknown side Social history; smoking daily pack per day-40 years, remote history of substance abuse Family [id number] Allergic: Acetaminophen, hydrocodone PCP: Not selected Home medication: None 12/30: Patient seen and evaluated in bedside. Patient answered question but slow. Continue Levophed for hypotension. Monitor labs and vital. 12/31: Patient seen and evaluated in bedside. No acute event overnight, currently on pressor. Monitor vitals and lab. Serum cortisol level SUNDAY A.M.. 01/01: Patient seen and evaluated in bedside. Monitor vital and off Levophed. Cefepime IV antibiotic switch to ceftriaxone. Patient will be benefitted with physical therapy. 01/02: Patient seen and evaluated in bedside. Patient off any pressors since yesterday, transferred to med surg. Monitor vital and labs. 01/03: Patient seen and evaluated in bedside today. Patient feeling better and denies any acute distress. Patient looks lethargic, transferred RICH to med- surg. Physical therapy on board. 01/03: Patient seen and evaluated in bedside today. Patient feeling better and denies any acute distress. Objective vital signs Vital Sign Date Time Temp Pulse Resp B/P (MAP) Pulse Ox O2 Delivery O2 Flow Rate FiO2 01/04/25 12:40 96.8 73 22 166/92 (116) 92 96.8 01/04/25 08:00 Room Air* 0 21 Total Intake and Output 01/03/25 01/03/25 01/04/25 15:00 23:00 07:00 Intake Total 50 ml 825 ml 560 ml Output Total 895 ml 450 ml Balance 50 ml -70 ml 110 ml medications Current Medications Medications Dose Ordered Sig/Jermain Route Start Time Stop Time Status Last Admin Dose Admin Acetaminophen 325 mg Q4HP PRN PO 12/30/24 01:00 01/04/25 00:05 325 MG Ondansetron HCl 4 mg Q4HP PRN IV 12/30/24 01:00 Morphine Sulfate 2 mg Q4HPRN PRN IV 12/30/24 01:00 Enoxaparin Sodium 40 mg DAILY SC 12/30/24 10:00 01/04/25 10:12 40 MG Ergocalciferol 50,000 unit Q7D PO 12/30/24 10:30 Cyanocobalamin 1,000 mcg DAILY PO 12/31/24 10:00 01/04/25 10:12 1,000 MCG Pantoprazole Sodium 40 mg DAILY@0700 PO 12/31/24 07:00 01/04/25 06:00 40 MG Lactulose 30 ml DAILYPRN PRN PO 12/31/24 16:45 Ceftriaxone Sodium 50 ml @ 100 mls/hr DAILY@09 IV 01/02/25 09:00 01/04/25 10:13 100 MLS/HR Levothyroxine Sodium 100 mcg QAM@0600 PO 01/04/25 06:00 01/04/25 05:57 100 MCG Examination Patient lying in bed, in no acute distress General: arousable, afebrile, mucosae are dry, alopecia in eyebrows and left temporal side of head. Eyelids are edematous. Macroglossia Cardiovascular: Normal S1 and S2. No murmurs, gallops or rubs Respiratory: Normal ventilation mechanics. Clear lung sounds on auscultation Abdomen: Soft, nontender, no organomegaly, normal bowel sounds, abdominal wall hernia present MSK/skin: Mobilizes 4 limbs. Skin is dry and scaly, mixed edematous skin. Neurological: Oriented in 3 spheres. Hyporeflexia. No motor no sensitive deficits. Delayed ankle reflex. Pupils are isocoric and reactive laboratory and microbiology Laboratory Tests 01/04/25 08:55 01/04/25 06:15 Test 01/04/25 06:15 Range/Units Serum Glucose 75 74-106 mg/dL Microbiology Date/Time Source Procedure Growth Status 12/31/24 08:55 Urine - Richey Port Urine Culture - Final Complete 12/31/24 00:19 Nose MRSA Screen - Final Complete 12/29/24 18:48 Blood Blood Culture - Final Klebsiella pneumoniae Complete Labs and/or images reviewed: Labs reviewed by me, Image(s) reviewed by me Problem List/Assessment/Plan Problem List/Assessment/Plan This is a 64-year-old female with known past medical history BIBEMS with chief complaint of altered level of consciousness. As per brother, patient mental status is getting worsen day by day approximately last 5 years but suddenly worsen past week. Patient lives with her mom who is 86-year-old, not follow-up with any physician last 10 years. Never seen by any cardiology, endocrine are neurologist. Patient use cane at home for ambulation and recurrent history of fall but denies any head trauma. During admission, [place] score 11. Patient seen and evaluated in bedside in ER. s/p Levophed due to hypotension. Patient presents clinical features of hypothyroidism (alopecia, palpebral myxedema, hyporeflexia, macroglossia, dry skin, cold intolerance, pretibial myxedema). Features of myxedema, is decreased mental status, hypothermia.Patient able to answer questions but delay and incomplete, appears confused, sensory and motor movement intact. NEUROLOGY Myxedema coma Metabolic encephalopathy secondary to sepsis due to pneumonia/UTI RASS-0 PLAN: Neuro check, monitor patient closely. CARDIOVASCULAR: Hypotensive shock secondary to sepsis need pressor Ruled out cardiomyopathy Mixed hyperlipidemia Echocardiogram 12/31/2024-showed LVEF 65%, moderate degree of left ventricular hypertrophy, slightly dilated left atrium and right atrium, no pericardial effusion, Plan; monitor blood pressure and vital. PULMONARY: Consider aspiration pneumonia due to myxedema coma/AMS Acute hypoxic respiratory failure due to pneumonia Gram-positive/Gram-negative Patient currently on nasal cannula with 2 L/min on admission CXR-showed left medial basilar atelectasis/pneumonia Plan: IV antibiotic GASTROINTESTINAL: Plan: Pantoprazole for GI prophylaxis GENITOURINARY: HANS secondary to hemodynamically mediated/VMN Klebsiella pneumoniae urinary tract infection Indwelling Richey catheter Acute complicated cystitis UA shows leukocyte esterase 1+, WBC and bacteria Urine culture growth Klebsiella pneumoniae. Plan: IVF, discontinue cefepime IV antibiotic and ceftriaxone on 01/01/2025 . HEMATOLOGY: Macrocytic anemia likely hypothyroidism Leukocytosis Ferritin 40.3, iron 30, TIBC 232, percentage of saturation 129 Plan: Vitamin B12, CBC. METABOLIC: Newly diagnosed severe hypothyroidism Vitamin-D deficiency Indicated IV levothyroxine (loading dose 200 mcg and 50 mcg p.o. daily) on admission Cortisol was elevated-25.09. Discontinue Hydrocortisone. Ultrasound thyroid-no masses or significant abnormality. TSH 61>30.1 and reduced T4 and T3. A.m. cortisol level 15.72 on 01/02/2025 Plan: Continue levothyroxine 75 mcg po daily vitamin-D 08639 Q weekly INFECTIOUS DISEASE: Sepsis due to UTI/aspiration pneumonia Gram-positive Gram-negative bacteria Aspiration pneumonia due to myxedema coma. Complicated cystitis Lactic acidosis PLAN: Continue IV antibiotic-ceftriaxone Blood culture x2 negative, MRSA nasal screen negative. Musculoskeletal/skin Gait instability Dry skin due to hypothyroidism Use cane at home for ambulation Plan: Monitor skin breakdown, physical therapy-Patient deomstrated an increase in functional abilities and participation. . DIET: REGULAR DIET DVT prophylax: Lovenox GI prophylaxis: Protonix Bowel regimen: Lactulose Code status: Full code LINES/DRAINS/ACCESS: IV access: Peripheral line Drips: none Richey catheter: on 12/30/2024 DISPOSITION: Med-surg Patient's status discussed with patient's brother-Carmela and brother-Tashi. More than 29 minutes spent with patient. Case discussed with Dr. Terry Plan discussed with: Patient, Other AVIS REYNOSO Jan 04, 2025 15:23
[2025-01-04] MEDS: LACTULOSE 20Gm/30ML SOLN PO SCH (16:24)
[2025-01-04] MEDS: KETOROLAC TROMETH 30 MG/ML 1ML VIAL IV PRN (16:25)
[2025-01-05] VITALS (8 sets, daily range): BP systolic 123–155; BP diastolic 71–97; PULSE 63–80; RESP 16–18; TEMP 97.6–100.4; O2SAT 90–94
[2025-01-05 08:00] LABS: Hematocrit 31.5 % (36.0-46.0); Hemoglobin 10.6 g/dL (12.2-16.2); Mean Corpuscular Hemoglobin 34.0 pg (28.0-32.0); Mean Corpuscular Volume 101.6 fL (80.0-100.0); Nucleated Red Blood Cells % 0.1 %
[2025-01-05 08:12] LABS: Alanine Aminotransferase 11 U/L (7-40); Albumin 3.8 g/dL (3.2-4.8); Anion Gap 10 (5-15); BUN/Creatinine Ratio 8.6 (10.0-20.0); Calcium 8.9 mg/dL (8.7-10.4); Carbon Dioxide 28 mmol/L (20-31); Glucose 82 mg/dL (74-106); Potassium 3.6 mmol/L (3.5-5.1); Sodium 145 mmol/L (136-145); Total Protein 6.0 g/dL (5.7-8.2)
[2025-01-05 08:13] LABS: Alkaline Phosphatase 42 U/L (46-116); Bilirubin, Total 0.2 mg/dL (0.2-1.0); Blood Urea Nitrogen 7 mg/dL (9-23); Chloride 107 mmol/L (98-107)
--- NOTE | 2025-01-05 09:42 | DVHPNRES ---
Progress Note Date Seen: Jan 05, 2025 Resident Creating Document: CONNER SANDRA RESIDENT Medical Necessity Reason Pt with a Central, PICC or Fol: No Subjective Review of Systems This is a 64-year-old female with known past medical history BIBEMS with chief complaint of altered level of consciousness. As per brother, patient mental status is getting worsen day by day approximately last 5 years but suddenly worsen past week. Patient lives with her mom who is 86-year-old, not follow-up with any physician last 10 years. Never seen by any cardiology, endocrine are neurologist. Patient use cane at home for ambulation and recurrent history of fall but denies any head trauma. During admission, [place] score 11. Patient seen and evaluated in bedside in ER. s/p Levophed due to hypotension. Patient able to answer questions but delay and incomplete, appears confused, sensory and motor movement intact. Currently [place] coma scale 15. Past medical history: Kidney stone Past surgical history: Tumor removal 2013 unknown side Social history; smoking daily pack per day-40 years, remote history of substance abuse Family [id number] Allergic: Acetaminophen, hydrocodone PCP: Not selected Home medication: None 12/30: Patient seen and evaluated in bedside. Patient answered question but slow. Continue Levophed for hypotension. Monitor labs and vital. 12/31: Patient seen and evaluated in bedside. No acute event overnight, currently on pressor. Monitor vitals and lab. Serum cortisol level SUNDAY A.M.. 01/01: Patient seen and evaluated in bedside. Monitor vital and off Levophed. Cefepime IV antibiotic switch to ceftriaxone. Patient will be benefitted with physical therapy. 01/02: Patient seen and evaluated in bedside. Patient off any pressors since yesterday, transferred to med surg. Monitor vital and labs. 01/03: Patient seen and evaluated in bedside today. Patient feeling better and denies any acute distress. Patient looks lethargic, transferred RICH to med- surg. Physical therapy on board. 01/04: Patient seen and evaluated in bedside today. Patient feeling better and denies any acute distress. 01/05: Patient seen and evaluated in bedside ,no acute event overnight. Physical therapy on board. Patient's symptoms improving, currently denies any acute distress. Objective vital signs Vital Sign Date Time Temp Pulse Resp B/P (MAP) Pulse Ox O2 Delivery O2 Flow Rate FiO2 01/05/25 08:18 16 94 Room Air* 0 21 01/05/25 05:00 97.8 68 155/73 (100) 97.8 Total Intake and Output 01/04/25 01/04/25 01/05/25 15:00 23:00 07:00 Intake Total 50 ml 800 ml 400 ml Output Total 850 ml 500 ml Balance 50 ml -50 ml -100 ml medications Current Medications Medications Dose Ordered Sig/Jermain Route Start Time Stop Time Status Last Admin Dose Admin Ondansetron HCl 4 mg Q4HP PRN IV 12/30/24 01:00 Morphine Sulfate 2 mg Q4HPRN PRN IV 12/30/24 01:00 Enoxaparin Sodium 40 mg DAILY SC 12/30/24 10:00 01/05/25 08:38 40 MG Ergocalciferol 50,000 unit Q7D PO 12/30/24 10:30 Cyanocobalamin 1,000 mcg DAILY PO 12/31/24 10:00 01/05/25 08:38 1,000 MCG Pantoprazole Sodium 40 mg DAILY@0700 PO 12/31/24 07:00 01/05/25 06:08 40 MG Ceftriaxone Sodium 50 ml @ 100 mls/hr DAILY@09 IV 01/02/25 09:00 01/05/25 08:38 100 MLS/HR Levothyroxine Sodium 100 mcg QAM@0600 PO 01/04/25 06:00 01/05/25 06:08 100 MCG Acetaminophen 325 mg Q6HR PO 01/04/25 14:45 01/05/25 06:08 325 MG Lactulose 30 ml BID PO 01/04/25 14:45 01/04/25 16:24 30 ML Ketorolac Tromethamine 15 mg Q6HPRN PRN IV 01/04/25 14:45 01/09/25 14:44 01/04/25 16:25 15 MG Examination Patient lying in bed, in no acute distress General: arousable, afebrile, mucosae are dry, alopecia in eyebrows and left temporal side of head. Eyelids are edematous. Macroglossia. Cardiovascular: Normal S1 and S2. No murmurs, gallops or rubs Respiratory: Normal ventilation mechanics. Clear lung sounds on auscultation Abdomen: Soft, nontender, no organomegaly, normal bowel sounds, abdominal wall hernia present MSK/skin: Mobilizes 4 limbs. Skin is dry and scaly, mixed edematous skin. Neurological: A0 x 3. No motor no sensitive deficits. Delayed ankle reflex. Pupils are isocoric and reactive. laboratory and microbiology Laboratory Tests 01/05/25 07:20 Test 01/05/25 07:20 Range/Units Serum Glucose 82 74-106 mg/dL Microbiology Date/Time Source Procedure Growth Status 12/31/24 08:55 Urine - Richey Port Urine Culture - Final Complete 12/31/24 00:19 Nose MRSA Screen - Final Complete 12/29/24 18:48 Blood Blood Culture - Final Klebsiella pneumoniae Complete Problem List/Assessment/Plan Problem List/Assessment/Plan This is a 64-year-old female with known past medical history BIBEMS with chief complaint of altered level of consciousness. As per brother, patient mental status is getting worsen day by day approximately last 5 years but suddenly worsen past week. Patient lives with her mom who is 86-year-old, not follow-up with any physician last 10 years. Never seen by any cardiology, endocrine are neurologist. Patient use cane at home for ambulation and recurrent history of fall but denies any head trauma. During admission, [place] score 11. Patient seen and evaluated in bedside in ER. s/p Levophed due to hypotension. Patient presents clinical features of hypothyroidism (alopecia, palpebral myxedema, hyporeflexia, macroglossia, dry skin, cold intolerance, pretibial myxedema). Features of myxedema, is decreased mental status, hypothermia.Patient able to answer questions but delay and incomplete, appears confused, sensory and motor movement intact. NEUROLOGY Myxedema coma Metabolic encephalopathy secondary to sepsis due to pneumonia/UTI RASS-0 PLAN: Neuro check, monitor patient closely. CARDIOVASCULAR: Hypotensive shock secondary to sepsis need pressor Ruled out cardiomyopathy Mixed hyperlipidemia Echocardiogram 12/31/2024-showed LVEF 65%, moderate degree of left ventricular hypertrophy, slightly dilated left atrium and right atrium, no pericardial effusion, Plan; monitor blood pressure and vital. PULMONARY: Consider aspiration pneumonia due to myxedema coma/AMS Acute hypoxic respiratory failure due to pneumonia Gram-positive/Gram-negative Patient currently on nasal cannula with 2 L/min on admission CXR-showed left medial basilar atelectasis/pneumonia Plan: IV antibiotic GASTROINTESTINAL: Plan: Pantoprazole for GI prophylaxis GENITOURINARY: HANS secondary to hemodynamically mediated/VMN Klebsiella pneumoniae urinary tract infection Indwelling Richey catheter Acute complicated cystitis UA shows leukocyte esterase 1+, WBC and bacteria Urine culture growth Klebsiella pneumoniae. Plan: ceftriaxone started on 01/01/2025. HEMATOLOGY: Macrocytic anemia likely hypothyroidism Leukocytosis Ferritin 40.3, iron 30, TIBC 232, percentage of saturation 129 Plan: Continue Vitamin B12, CBC. METABOLIC: Newly diagnosed severe hypothyroidism Myxedema coma Vitamin-D deficiency Indicated IV levothyroxine (loading dose 200 mcg and 50 mcg p.o. daily) on admission Cortisol was elevated-25.09. Discontinue Hydrocortisone. Ultrasound thyroid-no masses or significant abnormality. TSH 61>30.1 and reduced T4 and T3. A.m. cortisol level 15.72 on 01/02/2025 Plan: Continue levothyroxine 75 mcg po daily vitamin-D 45075 Q weekly Free T4 -0.04, monitor free T4 and TSH weekly. INFECTIOUS DISEASE: Bacteremia Sepsis due to UTI/aspiration pneumonia Gram-positive Gram-negative bacteria Aspiration pneumonia due to myxedema coma. Complicated cystitis Lactic acidosis * Blood culture x negative 12/29, MRSA nasal screen negative. * Anothr set, Blood culture positive on 12/29 growth- E coli * Plan: Continue IV antibiotic ceftriaxone, repeat blood culture ordered. Musculoskeletal/skin Gait instability Dry skin due to hypothyroidism Use cane at home for ambulation Plan: Monitor skin breakdown, physical therapy-Patient deomstrated an increase in functional abilities and participation. . DIET: REGULAR DIET DVT prophylax: Lovenox GI prophylaxis: Protonix Bowel regimen: Lactulose as needed. Code status: Full code LINES/DRAINS/ACCESS: IV access: Peripheral line Drips: none Richey catheter: Placed on 12/30/2024 and removed on 01/05/25 DISPOSITION: Med-surg Patient's status discussed with patient's brother-Carmela and brother-Tashi. DISCHARGED HOME WITH HOME PHYSICAL THERAPY, POSSIBLE DISCHARGE TOMORROW MORNING. More than 23 minutes spent with patient. Case discussed with Dr. Mast Plan discussed with: Patient, Other (Nurse) Date of Service: Jan 05, 2025 Billing Provider: ELEANOR MAST MD Common Visit Codes: [id number] INP/OBS CARE(HIGH) Secondary Visit Codes: 75937-[id number] CARE PLAN 30 MINUTES CONNER SANDRA RESIDENT Jan 05, 2025 09:42 ELEANOR MAST MD Jan 06, 2025 16:37
[2025-01-06 05:00] VITALS: BP 132/66; PULSE 75; RESP 16; TEMP 98; O2SAT 85
[2025-01-06 07:11] LABS: Hematocrit 29.9 % (36.0-46.0); Hemoglobin 10.1 g/dL (12.2-16.2); Mean Corpuscular Hemoglobin 33.4 pg (28.0-32.0); Mean Corpuscular Volume 98.7 fL (80.0-100.0); Nucleated Red Blood Cells % 0.1 %
[2025-01-06 07:18] LABS: Anion Gap 10 (5-15); Carbon Dioxide 29 mmol/L (20-31); Chloride 104 mmol/L (98-107); Potassium 3.6 mmol/L (3.5-5.1); Sodium 143 mmol/L (136-145)
[2025-01-06 07:19] LABS: Calcium 8.9 mg/dL (8.7-10.4)
[2025-01-06 07:23] LABS: Glucose 81 mg/dL (74-106)
[2025-01-06 07:24] LABS: BUN/Creatinine Ratio 10.7 (10.0-20.0); Blood Urea Nitrogen 9 mg/dL (9-23)
[2025-01-06 08:00] VITALS: RESP 16; O2SAT 90
[2025-01-06 09:00] VITALS: BP 149/84; PULSE 82; RESP 20; TEMP 97.8; O2SAT 93
--- NOTE | 2025-01-06 11:55 | DVHDSRES ---
Discharge Summary Date of Admission Resident Creating Document: CONNER SANDRA RESIDENT Dec 30, 2024 at 00:59 Date of Discharge: Jan 06, 2025 Labs/Diagnostic Data: Laboratory Results Test 01/06/25 05:58 01/05/25 07:20 01/03/25 06:34 01/02/25 08:19 White Blood Count 4.2 10^3/uL (4.4-10.8) Red Blood Count 3.03 10^6/uL (4.0-5.20) Hemoglobin 10.1 g/dL (12.2-16.2) Hematocrit 29.9 % (36.0-46.0) Mean Corpuscular Volume 98.7 fL (80.0-100.0) Mean Corpuscular Hemoglobin 33.4 pg (28.0-32.0) Mean Corpuscular Hemoglobin Concent 33.9 g/dL (32.0-36.0) Red Cell Distribution Width 15.2 % (11.8-14.3) Platelet Count 344 10^3/uL (140-450) Mean Platelet Volume 9.0 fL (6.9-10.8) Neutrophils (%) (Auto) 70.8 % (37.0-80.0) Lymphocytes (%) (Auto) 16.8 % (10.0-50.0) Monocytes (%) (Auto) 8.2 % (0.0-12.0) Eosinophils (%) (Auto) 3.0 % (0.0-7.0) Basophils (%) (Auto) 1.2 % (0.0-2.0) Neutrophils # (Auto) 3.0 10 ^3/uL (1.6-8.6) Lymphocytes # (Auto) 0.7 10 ^3/uL (0.4-5.4) Monocytes # (Auto) 0.3 10 ^3/uL (0-1.3) Eosinophils # (Auto) 0.1 10 ^3/uL (0-0.8) Basophils # (Auto) 0.1 10 ^3/uL (0-0.2) Nucleated Red Blood Cells 0.1 % Sodium Level 143 mmol/L (136-145) Potassium Level 3.6 mmol/L (3.5-5.1) Chloride Level 104 mmol/L (98-107) Carbon Dioxide Level 29 mmol/L (20-31) Anion Gap 10 (5-15) Blood Urea Nitrogen 9 mg/dL (9-23) Creatinine 0.84 mg/dL (0.550-1.02) Glomerular Filtration Rate Calc 78 mL/min (>90) BUN/Creatinine Ratio 10.7 (10.0-20.0) Serum Glucose 81 mg/dL (74-106) Calcium Level 8.9 mg/dL (8.7-10.4) Total Bilirubin 0.2 mg/dL (0.2-1.0) Aspartate Amino Transferase (AST) 17 U/L (13-40) Alanine Aminotransferase (ALT) 11 U/L (7-40) Alkaline Phosphatase 42 U/L (46-116) Total Protein 6.0 g/dL (5.7-8.2) Albumin 3.8 g/dL (3.2-4.8) Free Thyroxine (T4) Calculated 0.54 ng/dL (0.89-1.76) Thyroid Stimulating Hormone (TSH) 50.87 uIU/mL (0.55-4.78) Cortisol AM Sample 15.72 ug/dL (5.27-22.45) Test 01/02/25 03:24 01/01/25 03:21 12/31/24 04:40 12/30/24 01:25 Iron Level 30 ug/dL (50-170) Total Iron Binding Capacity 232 ug/dL (250-425) Percent Iron Saturation 12.9 % (15-50) Ferritin 140.3 ng/mL (10-291) Folic Acid 8.06 ng/mL (>5.38) Magnesium Level 2.1 mg/dL (1.6-2.6) Triglycerides Level 225 mg/dL (< 150) Cholesterol Level 261 mg/dL (< 200) LDL Cholesterol 182 mg/dL (< 100) HDL Cholesterol 36 mg/dL (40-59) Vitamin B12 Level 227 pg/mL (211-911) Vitamin D 25-Hydroxy 5.4 ng/mL (30.0-100) Test 12/30/24 00:33 12/29/24 21:59 12/29/24 21:00 12/29/24 18:51 Hemoglobin A1c 5.3 % A1C (<5.7) Lactic Acid Level 1.4 mmol/L (0.4-2.0) Phosphorus Level 3.4 mg/dL (2.4-5.1) B-Type Natriuretic Peptide 233.38 pg/mL (0-100) Troponin I High Sensitivity 14 ng/L (</=34) Urine Color Light-orange (Yellow) Urine Clarity Turbid (Clear) Urine pH 7.5 (5.0-9.0) Urine Specific Rosamond 1.015 (1.001-1.035) Urine Protein 1+ (Negative) Urine Ketones Negative (Negative) Urine Blood 2+ /uL (Negative) Urine Nitrite Negative (Negative) Urine Bilirubin Negative (Negative) Urine Urobilinogen Normal mg/dL (Negative) Urine Leukocyte Esterase 2+ /uL (Negative) Urine RBC 47 /hpf (0 - 4) Urine Microscopic WBC 35 /HPF (0-5) Urine Squamous Epithelial Cells Few /hpf (<5) Urine Bacteria Few /hpf (None Seen) Urine Hyaline Casts Few /lpf (0 - 2) Urine Mucus Few (None Seen) Urine Glucose Normal mg/dL (Normal) Urine Opiates Screen Neg (NEGATIVE) Urine Fentanyl Screen Neg (NEGATIVE) Urine Barbiturates Screen Neg (NEGATIVE) Urine Phencyclidine Screen Neg (NEGATIVE) Urine Amphetamines Screen Neg (NEGATIVE) Urine Benzodiazepines Screen Neg (NEGATIVE) Urine Cocaine Screen Neg (NEGATIVE) Urine Cannabinoids Screen Neg (NEGATIVE) Test 12/29/24 18:48 Differential Total Cells Counted 100.0 (100) Neutrophils % (Manual) 86 (37.0-80.0) Band Neutrophils % (Manual) 4 Lymphocytes % (Manual) 5 (10.0-50.0) Monocytes % (Manual) 5 (0-12) Eosinophils % (Manual) 0 (0-7) Basophils % (Manual) 0 (0.0-2.0) Metamyelocytes % (manual) 0 Myelocytes % (Manual) 0 Promyelocytes % (Manual) 0 Blast Cells % (Manual) 0 Reactive Lymphocytes 0 Platelet Estimate Adequate Anisocytosis (manual) Slight Total Triiodothyronine (TT3) < 0.10 ng/mL (0.60-1.81) Cortisol PM Sample 25.09 ug/dL (3.44-16.76) Other Laboratory Tests 01/06/25 05:58 Brief Hx & Hospital Course: HISTORY OF PRESENT ILLNESS: This is a 64-year-old female with known past medical history BIBEMS with chief complaint of altered level of consciousness. As per brother, patient mental status is getting worsen day by day approximately last 5 years but suddenly worsen past week. Patient lives with her mom who is 86-year-old, not follow-up with any physician last 10 years. Never seen by any cardiology, endocrine are neurologist. Patient use cane at home for ambulation and recurrent history of fall but denies any head trauma. During admission, Hampton score 11. Patient seen and evaluated in bedside in ER. s/p Levophed due to hypotension. Patient able to answer questions but delay and incomplete, appears confused, sensory and motor movement intact. Currently Alexander coma scale 15. 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 During initial admission, patient was hypotensive and needed pressors.Echocardiogram 12/31/2024-showed LVEF 65%, moderate degree of left ventricular hypertrophy, slightly dilated left atrium and right atrium, no pericardial effusion. CXR-showed left medial basilar atelectasis/pneumonia, treated with IV antibiotic. HANS resolved with IV fluid and urine culture shows growth of Klebsiella pneumoniae. Patient also have newly diagnosed severe hypo thyroidism/myxedema, needed IV levothyroxine with loading dose alone with hydrocortisone. AM Serum hydrocortisone level 15.72. IV levothyroxine switch to oral levothyroxine, patient tolerated well no side effects reported. Ultrasound thyroid-no masses or significant abnormality. Initial blood culture shows growth of Klebsiella pneumoniae and treated IV antibiotic and repeat blood culture x2 no growth. During hospitalization, patient treated both acute and chronic medical condition and her symptoms significantly improved. On 01/06/2025, patient denies any fever, SOB, chest pain, headache, nausea, vomiting, abdominal pain or any other acute distress. Patient is hemodynamically stable for discharge. The patient has received maximum benefits from inpatient treatment. Time was given to answer patient/ son-Adama questions and concerns in Layman terms. patient verbalized understanding and agree with treatment and follow-up. Patient was recommended to return to the ED if she experiences any worsening symptoms such as, but not limited to current symptoms. Continue current home medication. Follow-up with discharge Clinic within 1 weeks on Sunday morning and follow up with PCP, endocrinology within 2 to 4 week weeks after discharge . Patient educated and advised to resume home medication. DISCHARGE PLAN Continue levothyroxine 75 mcg daily, repeat thyroid panel week after discharge. Follow-up with primary care within 1 week after discharge Follow-up with Endocrine 2-4 weeks after discharge FINAL DIAGNOSIS Myxedema coma Metabolic encephalopathy secondary to sepsis due to pneumonia/UTI Hypotensive shock secondary to sepsis need pressor Ruled out cardiomyopathy Mixed hyperlipidemia Possible aspiration pneumonia due to myxedema coma/AMS Acute hypoxic respiratory failure due to pneumonia Gram-positive/Gram-negative HANS secondary to hemodynamically mediated/VMN Klebsiella pneumoniae urinary tract infection Indwelling Richey catheter Acute complicated cystitis Macrocytic anemia likely hypothyroidism Newly diagnosed severe hypothyroidism Vitamin-D deficiency Lactic acidosis Gait instability More than 43 minute spent with patient regarding discharge plan, plan discussed with patient, nurse and Dr. Jovel. Operations or Procedures ORDERING PHYSICIAN: ISRAEL GIBBONS MD PROCEDURE(s): CXR1 - CHEST XRAY 1 VIEW REASON: altered ORDER NUMBER(s): [id number], ACCESSION NUMBER(s): [id number] CLINICAL HISTORY: altered TECHNIQUE: Single view of the chest was obtained. COMPARISON: None FINDINGS: The heart size is mildly to moderately enlarged and the pulmonary vasculature appears normal. There is a left medial basilar opacity. IMPRESSION: Left medial basilar opacity, favor atelectasis. ATED BY: SAÚL MAYER MD DICTATED DATE/TIME: 12/29/24 190 ORDERING PHYSICIAN: CONNER SANDRA PROCEDURE(s): THYDU - THYROID REASON: Hypothyroidism ORDER NUMBER(s): [id number], ACCESSION NUMBER(s): [id number] CLINICAL HISTORY: Hypothyroidism TECHNIQUE: Ultrasound exam of the thyroid gland was performed using grayscale and color doppler imaging. COMPARISON: None FINDINGS: Evaluation is limited due to patient condition, resulting in very superficial skin. The right lobe of the thyroid gland is heterogeneous in echogenicity and measures 1.5 x 1.5 x 4.1 cm. There is no suspicious nodule or area or calcification. The left lobe of the thyroid gland is heterogeneous in echogenicity and measures 1.6 x 1.0 x 4.2 cm. There is no suspicious nodule or area or calcification. The isthmus measures 0.3 cm. IMPRESSION: Limited exam with no definite discrete thyroid nodule. ATED BY: SAÚL MAYER MD DICTATED DATE/TIME: 12/30/242034 Condition at Discharge: Stable Final Diagnosis/Problems List See DC note Discharge Disposition: Home Discharge Instruct/Medications Diet: Regular Activity: No Restrictions, As Tolerated Follow Up/Referral: PCP Endocrinology Discharge Statement: "Patient was advised to return to the ER or call 911 if any headaches, dizziness, shortness of breath, chest pain, abdominal pain, bleeding, fevers, or worsening of medical condition. Patient was counseled about treatment plan, medications, possible side effects, patientverbalized understanding. All questions were answered to the best of my ability. This discharge took greater then 30 minutes in planning, reviewing documentation, counseling the patient, and discussing with other team members." ASSESSMENT ASSESSMENT Assessment See DC note CONNER SANDRA RESIDENT Jan 06, 2025 11:55
[2025-01-06 13:00] VITALS: BP 144/84; PULSE 84; RESP 20; TEMP 98.1; O2SAT 95
[2025-01-06] MEDS ORDERED: LEVO500T91 PO (16:35)
[2025-01-06] MEDS ORDERED: LEVO100T8 PO (16:35)
[2025-01-06] MEDS ORDERED: CHOL100040 PO (16:36)
[2025-01-06 16:40] VITALS: BP 142/80; PULSE 72; RESP 18; TEMP 98; O2SAT 95
== END 2025-01-06 20:05 | disposition home health service (06) | DRG 871 ==
LOC: ER 18:10 → EDBD 18:10 → OVERFLOW 12-30 00:59 → ICU CENTRL 12-30 23:18 → TELE-EAST 01-02 16:59 → EAST 01-02 19:40 → TELE-EAST 01-04 04:51 → EAST 01-04 04:53 → WEST WING 01-05 21:10
PROVIDERS: ADMIT Internal Medicine
PROC: 06HY33Z Insertion of Infusion Device into Lower Vein, Percutaneous Approach (ICD-10-PCS; principal; 2024-12-30)
DX: A41.50 Gram-negative sepsis, unspecified (principal); E03.5 Myxedema coma; G93.41 Metabolic encephalopathy; R65.21 Severe sepsis with septic shock; N17.0 Acute kidney failure with tubular necrosis; J69.0 Pneumonitis due to inhalation of food and vomit; J15.69 Pneumonia due to other Gram-negative bacteria; J96.01 Acute respiratory failure with hypoxia; J98.11 Atelectasis; E87.20 Acidosis, unspecified; N28.9 Disorder of kidney and ureter, unspecified; D53.9 Nutritional anemia, unspecified; E03.9 Hypothyroidism, unspecified; E55.9 Vitamin D deficiency, unspecified; Z88.6 Allergy status to analgesic agent; D75.89 Other specified diseases of blood and blood-forming organs; E78.2 Mixed hyperlipidemia; B96.1 Klebsiella pneumoniae [K. pneumoniae] as the cause of diseases classified elsewhere; Z87.442 Personal history of urinary calculi; Z87.891 Personal history of nicotine dependence; Z88.5 Allergy status to narcotic agent; Z82.49 Family history of ischemic heart disease and other diseases of the circulatory system
CPT/HCPCS: 36415; 36556; 71045; 76536; 80048; 80053; 80061; 80307; 81001; 82306; 82533; 82607; 82728; 82746; 83036; 83540; 83550; 83605; 83735; 83880; 84100; 84439; 84443; 84480; 84484; 85007; 85025; 85027; 87040; 87077; 87081; 87086; 87088; 87186; 93005; 93306; 97110; 97116; 97163; 97530; 99291; G0378; J0692; J1885; J3480; J3490